=== PATIENT | male | born 1950 | race Hispanic/Latino ===

== ENCOUNTER 2017-02-25 02:01 | Emergency (ER) | payer SELFPAY ==
[2017-02-25 02:20] VITALS: BMI 31.1
[2017-02-25 02:22] VITALS: BP 179/83; PULSE 63; RESP 16; TEMP 97.5; O2SAT 98
--- NOTE | 2017-02-25 06:30 | ED PDOC ---
Lower Extremity Pain/Injury Time Seen by Provider: 02/25/17 02:16 Chief Complaint (Nursing): Lower Extremity Problem/Injury Chief Complaint (Provider): Foot Pain History Per: Patient History/Exam Limitations: no limitations Current Symptoms Are (Timing): Still Present Additional Complaint(s): Vishnu is a 66 y/o male with no past medical history who presents to the ED c/o chronic foot pain. Patient denies calf pain, shortness of breath, chest pain, or recent trauma. He is nondomicile. PMD: None Provided Past Medical History Reviewed: Historical Data, Nursing Documentation, Vital Signs Vital Signs: Last Vital Signs Temp 97.5 F L 02/25/17 02:20 Pulse 63 02/25/17 02:20 Resp 16 02/25/17 02:20 BP 179/83 H 02/25/17 02:20 Pulse Ox 98 02/25/17 02:20 - Medical History PMH: No Chronic Diseases - Surgical History Surgical History: No Surg Hx - Family History Family History: States: Unknown Family Hx - Home Medications Home Medications: Ambulatory Orders Medication Instructions Recorded Clotrimazole 1% Cream [Lotrimin 1% 1 applic TOP BID #1 tube 02/26/14 CREAM] Diphenhydramine Hydrochlorid 50 mg PO Q6 PRN #20 cap 05/28/14 [Benadryl] Permethrin [Elimite] 5 units TP ONCE #1 cre 05/28/14 Clindamycin [Cleocin] 300 mg PO BID #14 cap 07/03/14 Amoxicillin/Clavulanate Pota 1 tab PO BID #14 tab 08/02/14 [Augmentin 875 mg-125 mg] Naproxen [Naprosyn Tab] 250 mg PO Q12 #20 tab 12/22/15 - Allergies Allergies/Adverse Reactions: Allergies Allergy/AdvReac Type Severity Reaction Status Date / Time No Known Allergies Allergy Verified 02/25/17 02:19 Review of Systems ROS Statement: Except As Marked, All Systems Reviewed And Found Negative Cardiovascular: Negative for: Chest Pain Respiratory: Negative for: Shortness of Breath Musculoskeletal: Positive for: Foot Pain. Negative for: Leg Pain (calf) Physical Exam - Reviewed Nursing Documentation Reviewed: Yes Vital Signs Reviewed: Yes - Physical Exam Appears: Positive for: Non-toxic, No Acute Distress Head Exam: Positive for: ATRAUMATIC, NORMAL INSPECTION, NORMOCEPHALIC Skin: Positive for: Normal Color, Warm, Dry Eye Exam: Negative for: Nystagmus Cardiovascular/Chest: Positive for: Regular Rate, Rhythm. Negative for: Murmur Respiratory: Positive for: Normal Breath Sounds. Negative for: Respiratory Distress Gastrointestinal/Abdominal: Positive for: Normal Exam, Bowel Sounds, Soft. Negative for: Tenderness Back: Positive for: Normal Inspection Extremity: Positive for: Normal ROM, Capillary Refill (less than 2 sec. no drainge, discharge, hematoma or cellulitis noted in LE extremities), Swelling ( leg and foot chronic). Negative for: Calf Tenderness Neurologic/Psych: Positive for: Alert, hand chain maker II-XII, Oriented, Cerebellar Tests ( stable). Negative for: Motor/Sensory Deficits - ECG O2 Sat by Pulse Oximetry: 98 (RA) Pulse Ox Interpretation: Normal Medical Decision Making Medical Decision Making: Time: 3:26 Initial Impression: Foot pain Initial Plan: --Tylenol --Patient will follow up with podiatry for further treatment. Scribe Attestation: Documented by Adán Puente, acting as a scribe for Cristiane Coelho MD Provider Scribe Attestation: All medical record entries made by the Scribe were at my direction and personally dictated by me. I have reviewed the chart and agree that the record accurately reflects my personal performance of the history, physical exam, medical decision making, and the department course for this patient. I have also personally directed, reviewed, and agree with the discharge instructions and disposition. Disposition - Clinical Impression Clinical Impression: Chronic foot pain - Patient ED Disposition Is Patient to be Admitted: No Counseled Patient/Family Regarding: Studies Performed, Diagnosis, Need For Followup - Disposition Referrals: [facility] [Outside] Podiatry Clinic [Outside] Disposition: Routine/Home Disposition Time: 04:00 Condition: IMPROVED Additional Instructions: follow up with podiatry clinic in 1-2 days return to the ED with any worsening or concerning symptoms Instructions: Swollen Joint (ED) Forms: [employer] (Maori)
== END 2017-02-25 03:26 | disposition home or self-care (01) ==
LOC: H.ER 02:01
DX: G89.29 Other chronic pain (principal)

== ENCOUNTER 2017-03-13 02:14 | Emergency (ER) | payer SELFPAY ==
[2017-03-13 02:15] VITALS: BMI 31.1
[2017-03-13 02:39] VITALS: PULSE 76; RESP 16; TEMP 97.8; O2SAT 100
--- NOTE | 2017-03-13 03:32 | ED PDOC ---
Lower Extremity Pain/Injury Time Seen by Provider: 03/13/17 02:44 Chief Complaint (Nursing): Lower Extremity Problem/Injury Chief Complaint (Provider): leg pain History Per: Patient History/Exam Limitations: no limitations Onset/Duration Of Symptoms: Days (3) Current Symptoms Are (Timing): Still Present Additional History Per: Patient Additional Complaint(s): 66 y/o male presents with leg pain x 3 days. Patient notes problems with intermittent lower extremity pain/swelling x years, but notes pain to have started to worsen over the last few days. Patient is homeless, admits to excessive walking. Denies fever, nausea/vomiting, chest pain, shortness of breath, palpitations, recent travel. Past Medical History Reviewed: Historical Data, Nursing Documentation, Vital Signs Vital Signs: Last Vital Signs Temp 97.8 F 03/13/17 02:37 Pulse 76 03/13/17 02:37 Resp 16 03/13/17 02:37 BP 139/83 03/13/17 02:37 Pulse Ox 100 03/13/17 02:37 - Surgical History Surgical History: No Surg Hx - Family History Family History: States: Unknown Family Hx - Home Medications Home Medications: Ambulatory Orders Medication Instructions Recorded Clotrimazole 1% Cream [Lotrimin 1% 1 applic TOP BID #1 tube 02/26/14 CREAM] Diphenhydramine Hydrochlorid 50 mg PO Q6 PRN #20 cap 05/28/14 [Benadryl] Permethrin [Elimite] 5 units TP ONCE #1 cre 05/28/14 Clindamycin [Cleocin] 300 mg PO BID #14 cap 07/03/14 Amoxicillin/Clavulanate Pota 1 tab PO BID #14 tab 08/02/14 [Augmentin 875 mg-125 mg] Naproxen [Naprosyn Tab] 250 mg PO Q12 #20 tab 12/22/15 Furosemide [Lasix] 20 mg PO BID #20 tablet 03/13/17 - Allergies Allergies/Adverse Reactions: Allergies Allergy/AdvReac Type Severity Reaction Status Date / Time No Known Allergies Allergy Verified 02/25/17 02:19 Review of Systems ROS Statement: Except As Marked, All Systems Reviewed And Found Negative Musculoskeletal: Positive for: Leg Pain (left) Physical Exam - Reviewed Nursing Documentation Reviewed: Yes Vital Signs Reviewed: Yes - Physical Exam Appears: Positive for: Well, Non-toxic, No Acute Distress Cardiovascular/Chest: Positive for: Regular Rate, Rhythm Respiratory: Positive for: Normal Breath Sounds Extremity: Positive for: Normal ROM, Pedal Edema (bilateral with chronic skin thickening. Plantar bilateral feet macerated), Swelling (2+ bilateral lower extremity pitting edema. + open superficial ulceration left anterior/medial espinal ; no malodor, prurulent drainage noted. No warmth to touch.). Negative for: Calf Tenderness Neurologic/Psych: Positive for: Alert, Oriented - Laboratory Results Result Diagrams: 03/13/17 03:50 03/13/17 03:50 - ECG O2 Sat by Pulse Oximetry: 100 - Progress ED Course And Treament: labs Telfa applied over open ulceration. Fresh socks given. BNP elevated; patient denies chest pain, shortness of breath currently. Case discussed with ED attending Dr. Zuleta; agrees with plan to discharge with diuretic rx to f/up as outpatient. Patient was educated on findings, discharged with rx Lasix. Advised to follow up at [facility], wound care center, and podiatry clinic. Stressed importance of elevating legs at rest. Return to ED for worsening/concerning symptoms. Disposition - Clinical Impression Clinical Impression: CHF (congestive heart failure), Leg edema, Chronic ulcer of lower extremity Counseled Patient/Family Regarding: Studies Performed, Diagnosis, Need For Followup, Rx Given - Disposition Referrals: [facility] [Outside] Podiatry Clinic [Outside] [facility] [Outside] Disposition: Routine/Home Disposition Time: 05:04 Condition: STABLE Prescriptions: Furosemide [Lasix] 20 mg PO BID #20 tablet Instructions: Heart Failure (ED), Leg Edema (ED)
[2017-03-13 04:18] LABS: BASO # 0.1 K/uL (0.0-0.2); BASO % 1.1 % (0.0-2.0); EOS # 0.3 K/uL (0.0-0.7); EOS % 4.1 % (0.0-4.0); HEMATOCRIT 35.9 % (35.0-51.0); LYMPH # 1.7 K/uL (1.0-4.3); LYMPH % 27.6 % (20.0-40.0); MEAN CELL VOLUME 88.4 fl (80.0-94.0); MEAN CORPUSCULAR HEMOGLOBIN 30.4 pg (27.0-31.0); MEAN CORPUSCULAR HGB CONC 34.4 g/dL (33.0-37.0); MEAN PLATELET VOLUME 8.2 fl (7.2-11.7); MONO # 0.6 K/uL (0.0-0.8); MONO % 10.3 % (0.0-10.0); NEUT # 3.5 K/uL (1.8-7.0); NEUT % 56.9 % (50.0-75.0); RED CELL DISTRIBUTION WIDTH 14.1 % (11.5-14.5); WHITE BLOOD COUNT 6.1 K/uL (4.8-10.8)
[2017-03-13 04:29] LABS: ALB/GLOB RATIO 1.1 (1.0-2.1); BILIRUBIN,TOTAL 0.7 mg/dl (0.2-1.3); CARBON DIOXIDE 28 mmol/L (22-30); CHLORIDE 111 mmol/L (98-107); GFR AFRICAN-AMERICAN > 60; GLUCOSE,RANDOM 92 mg/dL (75-110); SODIUM 147 mmol/l (132-148); TOTAL PROTEIN 7.8 G/DL (6.3-8.2)
[2017-03-13 04:32] LABS: ALKALINE PHOSPHATASE 66 U/L (38-126); ALT/SGPT 25 U/L (21-72); AST/SGOT 19 U/L (17-59); BLOOD UREA NITROGEN 12 mg/dl (9-20); POTASSIUM 4.3 MMOL/L (3.6-5.0)
[2017-03-13 05:23] VITALS: BP 132/84
== END 2017-03-13 05:27 | disposition home or self-care (01) ==
LOC: H.ER 02:14
DX: I50.9 Heart failure, unspecified (principal); R60.0 Localized edema; L97.929 Non-pressure chronic ulcer of unspecified part of left lower leg with unspecified severity

== ENCOUNTER 2017-06-06 19:49 | Emergency (ER) | payer MEDICARE ==
[2017-06-06 19:49] VITALS: BMI 31.1
[2017-06-06 20:14] VITALS: BP 127/68; PULSE 71; RESP 18; TEMP 98.2; O2SAT 98
--- NOTE | 2017-06-06 21:07 | ED PDOC ---
HPI: Skin/Bite Injury Time Seen by Provider: 06/06/17 21:04 Chief Complaint (Nursing): Abnormal Skin Integrity Chief Complaint (Provider): Rash History Per: Patient History/Exam Limitations: no limitations Onset/Duration Of Symptoms: Days (x3) Additional Complaint(s): Vishnu Kwong is a 67 year old male that presents to the ED with a chief complaint of rash to arms and upper back for the past 3 days. Patient is currently non-domiciled. He denies fever or chills. PMD: none Past Medical History Reviewed: Historical Data, Nursing Documentation, Vital Signs Vital Signs: Last Vital Signs Temp 98.2 F 06/06/17 20:13 Pulse 71 06/06/17 20:13 Resp 18 06/06/17 20:13 BP 127/68 06/06/17 20:13 Pulse Ox 98 06/06/17 21:19 - Medical History PMH: CHF (as per pt history), Peripheral Edema - Family History Family History: States: Unknown Family Hx - Living Arrangements Living Arrangements: Other (nondomiciled) - Social History Current smoker - smoking cessation education provided: No Alcohol: None Drugs: Denies - Home Medications Home Medications: Ambulatory Orders Medication Instructions Recorded Clotrimazole 1% Cream [Lotrimin 1% 1 applic TOP BID #1 tube 02/26/14 CREAM] Diphenhydramine Hydrochlorid 50 mg PO Q6 PRN #20 cap 05/28/14 [Benadryl] Permethrin [Elimite] 5 units TP ONCE #1 cre 05/28/14 Clindamycin [Cleocin] 300 mg PO BID #14 cap 07/03/14 Amoxicillin/Clavulanate Pota 1 tab PO BID #14 tab 08/02/14 [Augmentin 875 mg-125 mg] Naproxen [Naprosyn Tab] 250 mg PO Q12 #20 tab 12/22/15 Furosemide [Lasix] 20 mg PO BID #20 tablet 03/13/17 - Allergies Allergies/Adverse Reactions: Allergies Allergy/AdvReac Type Severity Reaction Status Date / Time No Known Allergies Allergy Verified 02/25/17 02:19 Review of Systems ROS Statement: Except As Marked, All Systems Reviewed And Found Negative Skin: Positive for: Rash (rash and arms) Physical Exam - Reviewed Nursing Documentation Reviewed: Yes Vital Signs Reviewed: Yes - Physical Exam Appears: Positive for: Non-toxic, No Acute Distress Head Exam: Positive for: ATRAUMATIC, NORMOCEPHALIC Skin: Positive for: Normal Color, Warm, Rash (Urticarial and maculopapular rash noted to bilateral arms and back) Eye Exam: Positive for: Normal appearance, EOMI, PERRL Cardiovascular/Chest: Positive for: Regular Rate, Rhythm Respiratory: Positive for: Normal Breath Sounds Neurologic/Psych: Positive for: Alert, Oriented, Gait (steady). Negative for: Motor/Sensory Deficits - ECG O2 Sat by Pulse Oximetry: 98 (RA) Pulse Ox Interpretation: Normal Medical Decision Making Medical Decision Making: Impression: Contact dermatitis Plan: * Benadryl 25 mg PO * Prednisone 60 mg PO 21:18 Patient left without treatment complete, did not receive meds ordered Scribe Attestation: Documented by Janel Chang, acting as a scribe for Naomi Siegel PA-C. Provider Scribe Attestation: All medical record entries made by the Scribe were at my direction and personally dictated by me. I have reviewed the chart and agree that the record accurately reflects my personal performance of the history, physical exam, medical decision making, and the department course for this patient. I have also personally directed, reviewed, and agree with the discharge instructions and disposition. Disposition - Clinical Impression Clinical Impression: Contact dermatitis - Patient ED Disposition Is Patient to be Admitted: No - Disposition Disposition: Left W/O Treatment (Left before treatment complete) Disposition Time: 21:18 Condition: UNKNOWN Forms: [employer] (Welsh)
== END 2017-06-06 21:20 | disposition left against medical advice (07) ==
LOC: H.ER 19:49
DX: L25.9 Unspecified contact dermatitis, unspecified cause (principal); I50.9 Heart failure, unspecified

== ENCOUNTER 2017-07-04 00:41 | Observation (INO) | payer MEDICARE ==
[2017-07-04 00:41] VITALS: BMI 31.1
--- NOTE | 2017-07-04 02:18 | US ---
EXAM: US Duplex Right Lower Extremity Veins CLINICAL HISTORY: 67 years old, male; Pain; Leg, lower; Bilateral; Additional info: R/O dvt TECHNIQUE: Real-time ultrasound scan of the veins of the right lower extremity with color Doppler flow, spectral waveform analysis and compression. COMPARISON: No relevant prior studies available. FINDINGS: Deep veins: Incomplete compressibility of popliteal vein. Partial flow on color or spectral Doppler imaging. Superficial veins: No thrombosis. Soft tissues: No popliteal cyst. IMPRESSION: 1. Nonocclusive DVT within RIGHT lower extremity. EXAM: US Duplex Left Lower Extremity Veins CLINICAL HISTORY: 67 years old, male; Pain; Leg, lower; Bilateral; Additional info: R/O dvt TECHNIQUE: Real-time ultrasound scan of the veins of the left lower extremity with color Doppler flow, spectral waveform analysis and compression. COMPARISON: No relevant prior studies available. FINDINGS: Deep veins: Normal color and spectral Doppler flow. Normal compressibility. No deep vein thrombosis from common femoral to popliteal vein. Superficial veins: No thrombosis. Soft tissues: No popliteal cyst. IMPRESSION: 1. No evidence of DVT within LEFT lower extremity.
[2017-07-04] MEDS ORDERED: Enoxaparin 80 mg Syringe SC STA (02:43)
--- NOTE | 2017-07-04 02:43 | ED PDOC ---
Lower Extremity Pain/Injury Time Seen by Provider: 07/04/17 01:04 Chief Complaint (Nursing): Lower Extremity Problem/Injury Chief Complaint (Provider): Bilateral Leg Swelling and Pain History Per: Patient History/Exam Limitations: no limitations Onset/Duration Of Symptoms: Days (x2 weeks) Current Symptoms Are (Timing): Still Present Additional Complaint(s): 67 y/o male with a past medical history of chronic LE edema and CHF, who presents to the ED complaining of b/l leg pain and swelling x2 weeks. Patient states his pain is worse than he is usually accustomed to. Denies fever, chest pain, or shortness of breath. PMD: None provided Past Medical History Reviewed: Historical Data, Nursing Documentation, Vital Signs Vital Signs: Last Vital Signs Temp 98.2 F 07/04/17 00:56 Pulse 92 H 07/04/17 00:56 Resp 18 07/04/17 00:56 BP 134/71 07/04/17 00:56 Pulse Ox 99 07/04/17 00:56 - Medical History PMH: CHF (as per pt history), Peripheral Edema - Surgical History Surgical History: No Surg Hx - Family History Family History: States: Unknown Family Hx - Living Arrangements Living Arrangements: Other (Homeless) - Social History Current smoker - smoking cessation education provided: Yes Alcohol: None Drugs: Denies - Home Medications Home Medications: Ambulatory Orders Medication Instructions Recorded No Known Home Med 07/04/17 - Allergies Allergies/Adverse Reactions: Allergies Allergy/AdvReac Type Severity Reaction Status Date / Time No Known Allergies Allergy Verified 02/25/17 02:19 Review of Systems ROS Statement: Except As Marked, All Systems Reviewed And Found Negative Constitutional: Negative for: Fever Cardiovascular: Negative for: Chest Pain Respiratory: Negative for: Shortness of Breath Musculoskeletal: Positive for: Leg Pain (and swelling) Physical Exam - Reviewed Nursing Documentation Reviewed: Yes Vital Signs Reviewed: Yes - Physical Exam Appears: Positive for: Non-toxic, No Acute Distress Head Exam: Positive for: ATRAUMATIC, NORMAL INSPECTION, NORMOCEPHALIC Skin: Positive for: Normal Color, Warm, Dry. Negative for: Rash Eye Exam: Positive for: EOMI, Normal appearance, PERRL Neck: Positive for: Normal, Painless ROM, Supple Cardiovascular/Chest: Positive for: Regular Rate, Rhythm. Negative for: Murmur Respiratory: Positive for: Normal Breath Sounds. Negative for: Respiratory Distress Gastrointestinal/Abdominal: Positive for: Normal Exam, Bowel Sounds, Soft. Negative for: Tenderness Back: Positive for: Normal Inspection. Negative for: L CVA Tenderness, R CVA Tenderness, Vertebral Tenderness Extremity: Positive for: Calf Tenderness (and warmth), Other (b/l erythema and edema to both lower extremities, right more edematous than left, 3+ edema to LLE , 2+ edema to RLE) Neurologic/Psych: Positive for: Alert, Oriented. Negative for: Motor/Sensory Deficits - Laboratory Results Result Diagrams: 07/05/17 06:00 07/05/17 06:00 - ECG O2 Sat by Pulse Oximetry: 99 (RA) Pulse Ox Interpretation: Normal Medical Decision Making Medical Decision Making: Time: 01:28 Initial Impression: 67 y/o male with lower extremity pain in setting of known chronic venostatsis Initial Plan: --Alcohol serum --CMP --Lactic acid, plasma --PTT/PT --CBC w/ differential --Toradol 4mg IV --Blood culture --Heplock insertion --US Duplex LE --Reevaluation Time: 02:18 EXAM: US Duplex Right Lower Extremity Veins CLINICAL HISTORY: 67 years old, male; Pain; Leg, lower; Bilateral; Additional info: R/O dvt TECHNIQUE: Real-time ultrasound scan of the veins of the right lower extremity with color Doppler flow, spectral waveform analysis and compression. COMPARISON: No relevant prior studies available. FINDINGS: Deep veins: Incomplete compressibility of popliteal vein. Partial flow on color or spectral Doppler imaging. Superficial veins: No thrombosis. Soft tissues: No popliteal cyst. IMPRESSION: 1. Nonocclusive DVT within RIGHT lower extremity. EXAM: US Duplex Left Lower Extremity Veins CLINICAL HISTORY: 67 years old, male; Pain; Leg, lower; Bilateral; Additional info: R/O dvt TECHNIQUE: Real-time ultrasound scan of the veins of the left lower extremity with color Doppler flow, spectral waveform analysis and compression. COMPARISON: No relevant prior studies available. FINDINGS: Deep veins: Normal color and spectral Doppler flow. Normal compressibility. No deep vein thrombosis from common femoral to popliteal vein. Superficial veins: No thrombosis. Soft tissues: No popliteal cyst. IMPRESSION: 1. No evidence of DVT within LEFT lower extremity. Time: : --Lovenox 80mg SC --Patient will be admitted for new onset DVT. Case discussed with Dr. Foss, [facility] resident. Scribe Attestation: Documented by Yfn Wyatt, acting as a scribe for John Zuleta MD. Provider Scribe Attestation: All medical record entries made by the Scribe were at my direction and personally dictated by me. I have reviewed the chart and agree that the record accurately reflects my personal performance of the history, physical exam, medical decision making, and the department course for this patient. I have also personally directed, reviewed, and agree with the discharge instructions and disposition. Disposition - Clinical Impression Clinical Impression: Deep vein thrombosis (DVT) - Patient ED Disposition Is Patient to be Admitted: Yes - Disposition Disposition Time: : Condition: STABLE - Pt Status Changed To: Hospital Disposition Of: Inpatient - Admit Certification Admit to Inpatient:: After my assessment, the patient will require hospitalization for at least two midnights. This is because of the severity of symptoms shown, intensity of services needed, and/or the medical risk in this patient being treated as an outpatient.
[2017-07-04 03:00] LABS: BASO % 0.6 % (0.0-2.0); EOS # 0.4 K/uL (0.0-0.7); EOS % 5.4 % (0.0-4.0); HEMOGLOBIN 10.5 g/dL (12.0-18.0); LYMPH % 13.3 % (20.0-40.0); MEAN CELL VOLUME 84.6 fl (80.0-94.0); MEAN CORPUSCULAR HEMOGLOBIN 27.4 pg (27.0-31.0); MEAN CORPUSCULAR HGB CONC 32.3 g/dL (33.0-37.0); MEAN PLATELET VOLUME 7.9 fl (7.2-11.7); MONO # 0.8 K/uL (0.0-0.8); MONO % 11.3 % (0.0-10.0); NEUT # 5.1 K/uL (1.8-7.0); NEUT % 69.4 % (50.0-75.0); NRBC % 0.1 % (0.0-0.0); RBC 3.85 Mil/uL (4.40-5.90); RED CELL DISTRIBUTION WIDTH 16.2 % (11.5-14.5); WHITE BLOOD COUNT 7.3 K/uL (4.8-10.8)
[2017-07-04 03:01] LABS: ALB/GLOB RATIO 0.8 (1.0-2.1); ALBUMIN 3.5 g/dL (3.5-5.0); ALT/SGPT 31 U/L (21-72); AST/SGOT 20 U/L (17-59); BLOOD UREA NITROGEN 24 mg/dl (9-20); GFR AFRICAN-AMERICAN > 60; GFR NON-AFRICAN AMERICAN > 60
[2017-07-04 03:08] LABS: INR 1.1 (0.9-1.2); PROTHROMBIN TIME 11.7 Seconds (9.8-13.1)
[2017-07-04 03:09] LABS: PARTIAL THROMBOPLASTIN TIME 29.5 Seconds (25.6-37.1)
--- NOTE | 2017-07-04 03:30 | CP.PCM.HP ---
History of Present Illness - History of Present Illness History of Present Illness: 67 yo ,m, Homeless, PMhx/o b/l leg stasis edema lower extremities, chronic leg ulcers, CHF presents to ED c/o righ calf pain for the last 2 weeks, worse during the last 2 days, associated with swelling. Patient denies fever, cough, SOB, chest pain, palpitation, n,v,abd pain,diarrhea, hx/o DVT, recent travel, inmovilization. reports chornic pain b/l leg, but this time is different pain than he usually is accustomed to. PMD: [facility] last seen Dr Hess 03/22/2017 Allergies:NKDA Meds: none Psurghx: none Pshx: Denies ETOH,rect drugs cig but by ECW: Reports smoking hx of 80 pack years , past Etoh abuse (2-3 (6pack beers) per day)-last smoked and drank Etoh at the end of the when he lost his job and home ER Course VS: Normal LAbs: CBC : 7.3 >10.5<228 pending rest of the labs Imaging: Nonocclusive DVT within RIGHT lower extremity(popliteal vein). Meds: Lovenox 80 mg sc, Toradol 15 mg IV Status: Full code Present on Admission - Present on Admission Any Indicators Present on Admission: No History of DVT/PE: No History of Uncontrolled Diabetes: No Decubitus Ulcer Present: No Review of Systems - Review of Systems All systems: reviewed and no additional remarkable complaints except - Cardiovascular Cardiovascular: As Per HPI - Respiratory Respiratory: As Per HPI - Gastrointestinal Gastrointestinal: As Per HPI - Musculoskeletal Musculoskeletal: Other (b/l leg pain, worse right leg) - Integumentary Integumentary: Dry Skin, Skin Ulcer (left ant calf), Swelling (b/l legs) Past Patient History - Past Social History Alcohol: None Drugs: Denies - CARDIAC Hx Congestive Heart Failure: Yes (as per pt history) Hx Peripheral Edema: Yes - INTEGUMENTARY Other/Comment: chronic leg ulcers as per history - PSYCHIATRIC Hx Substance Use: No - SURGICAL HISTORY Hx Surgeries: Yes Hx Eye Surgery: Yes (Left eye Strabismus) - ANESTHESIA Hx Anesthesia: Yes Hx Anesthesia Reactions: No Meds Allergies/Adverse Reactions: Allergies Allergy/AdvReac Type Severity Reaction Status Date / Time No Known Allergies Allergy Verified 02/25/17 02:19 Physical Exam - Constitutional Appears: Non-toxic, No Acute Distress - Head Exam Head Exam: ATRAUMATIC, NORMOCEPHALIC - Eye Exam Eye Exam: Normal appearance - ENT Exam ENT Exam: Mucous Membranes Moist - Neck Exam Neck exam: Positive for: Normal Inspection - Respiratory Exam Respiratory Exam: Clear to Auscultation Bilateral. absent: Rales, Rhonchi, Wheezes - Cardiovascular Exam Cardiovascular Exam: REGULAR RHYTHM, +S1, +S2, Systolic Murmur (2/6 left sternal border, arotic area, pulmonar area) - GI/Abdominal Exam GI & Abdominal Exam: Normal Bowel Sounds, Soft. absent: Guarding, Rebound, Tenderness - Extremities Exam Extremities exam: Positive for: calf tenderness (right leg, Lucas sign right leg ), full ROM, pedal edema (2+ b/l legs), tenderness (right leg, b/l leg erythema with stasis dermatitis,dry skin, yellow scab, superficial ulcer left ant calf) - Back Exam Back exam: NORMAL INSPECTION - Neurological Exam Neurological exam: Alert, Oriented x3 - Psychiatric Exam Psychiatric exam: Normal Affect - Skin Skin Exam: Dry Results - Vital Signs Recent Vital Signs: Last Vital Signs Temp 98.2 F 07/04/17 00:56 Pulse 92 H 07/04/17 00:56 Resp 18 07/04/17 00:56 BP 134/71 07/04/17 00:56 Pulse Ox 99 07/04/17 03:20 - Labs Result Diagrams: 07/04/17 02:35 07/04/17 02:35 Labs: Laboratory Results - last 24 hr 07/04/17 07/04/17 07/04/17 02:35 02:35 02:35 WBC 7.3 RBC 3.85 L Hgb 10.5 L Hct 32.6 L MCV 84.6 D MCH 27.4 MCHC 32.3 L RDW 16.2 H Plt Count 228 MPV 7.9 Neut % (Auto) 69.4 Lymph % (Auto) 13.3 L [place] % (Auto) 11.3 H Eos % (Auto) 5.4 H Baso % (Auto) 0.6 Neut # (Auto) 5.1 Lymph # (Auto) 1.0 [place] # (Auto) 0.8 Eos # (Auto) 0.4 Baso # (Auto) 0.0 PT INR APTT Sodium 143 Potassium 3.9 Chloride 105 Carbon Dioxide 25 Anion Gap 17 BUN 24 H Creatinine 0.9 Est GFR ( Amer) > 60 Est GFR (Non-Af Amer) > 60 Random Glucose 115 H Lactic Acid 0.8 Calcium 9.0 Total Bilirubin 0.3 AST 20 ALT 31 Alkaline Phosphatase 68 Total Protein 7.9 Albumin 3.5 Globulin 4.3 H Albumin/Globulin Ratio 0.8 L Alcohol, Quantitative < 10 07/04/17 02:35 WBC RBC Hgb Hct MCV MCH MCHC RDW Plt Count MPV Neut % (Auto) Lymph % (Auto) [place] % (Auto) Eos % (Auto) Baso % (Auto) Neut # (Auto) Lymph # (Auto) [place] # (Auto) Eos # (Auto) Baso # (Auto) PT 11.7 INR 1.1 APTT 29.5 Sodium Potassium Chloride Carbon Dioxide Anion Gap BUN Creatinine Est GFR ( Amer) Est GFR (Non-Af Amer) Random Glucose Lactic Acid Calcium Total Bilirubin AST ALT Alkaline Phosphatase Total Protein Albumin Globulin Albumin/Globulin Ratio Alcohol, Quantitative Assessment & Plan - Assessment and Plan (Free Text) Plan: Assessment/Plan 67 yo ,m, Homeless, PMhx/o b/l leg stasis edema lower extremities, chronic leg ulcers, CHF admitted for right leg DVT 1) DVT right leg -Us dopplex: Nonocclusive DVT within RIGHT lower extremity( right popliteal vein ). -Lovenox 1mg/kg BID 80 mg SC BID 2) Hx/o CHF -by chart. patient denies CHF -systolic murmur -EK : possible lef atrial enlargment, left ant fascicular block, possible old anteroseptal infarct T wave abnormality. consider lat ischemia. -EKG on admission: NSR. left ant fascicular block, ant septal infart age indeterminated. -Pending BMP. consider Echo 3) Leg stasis dermatitis -chronic -will need podiatry evaluation 4) DVT Prophylaxis -Lovenox therapeutic for DVT
--- NOTE | 2017-07-04 08:34 | CP.PCM.PN ---
Subjective - Date & Time of Evaluation Date of Evaluation: 07/04/17 Time of Evaluation: 09:55 - Subjective Subjective: Pt seen and evaluated at bedside this am. Admitted overnight for DVT in RLE. No further acute events overnight, no other complaints. Denies chest pain, trouble breathing, abdominal pain/discomfort. Objective - Vital Signs/Intake and Output Vital Signs (last 24 hours): Temp Pulse Resp BP Pulse Ox 97.6 F 79 19 148/68 98 07/04/17 07:52 07/04/17 07:52 07/04/17 07:52 07/04/17 07:52 07/04/17 07:52 - Medications Medications: Current Medications Acetaminophen (Tylenol 325mg Tab) 650 mg PO Q6 PRN PRN Reason: Pain, Mild (1-3) Acetaminophen (Tylenol 325mg Tab) 650 mg PO Q6 PRN PRN Reason: Fever >100.4 F Enoxaparin Sodium (Lovenox) 80 mg SC Q12H KALYANI PRN Reason: Protocol Ketorolac Tromethamine (Toradol) 15 mg IVP Q6 PRN PRN Reason: Pain, moderate (4-7) Morphine Sulfate (Morphine) 2 mg IVP Q4 PRN PRN Reason: Pain, severe (8-10) - Labs Labs: 07/04/17 02:35 07/04/17 02:35 PT 11.7 Seconds (9.8-13.1) 07/04/17 02:35 INR 1.1 (0.9-1.2) 07/04/17 02:35 APTT 29.5 Seconds (25.6-37.1) 07/04/17 02:35 - Constitutional Appears: Non-toxic, No Acute Distress, Unkempt - Eye Exam Eye Exam: Normal appearance - ENT Exam ENT Exam: Mucous Membranes Moist - Respiratory Exam Respiratory Exam: Clear to Ausculation Bilateral, NORMAL BREATHING PATTERN. absent: Rales, Rhonchi, Wheezes - Cardiovascular Exam Cardiovascular Exam: REGULAR RHYTHM, +S1, +S2 - GI/Abdominal Exam GI & Abdominal Exam: Soft, Normal Bowel Sounds. absent: Tenderness - Extremities Exam Extremities Exam: Calf Tenderness (right calf), Pedal Edema (bilaterally, 2+) Additional comments: RLE warm, edematous > LLE evidence of venous stasis, dried yellow crusts on lower calves circumferentially and bilaterally - Neurological Exam Neurological Exam: Alert, Awake - Skin Skin Exam: Dry Assessment and Plan - Assessment and Plan (Free Text) Assessment: 67 yo homeless male, with bilateral lower extremity edema and venous stasis admitted for DVT in [facility]. Plan: # DVT of right lower extremity - Venous duplex u/s : Nonocclusive DVT within RIGHT lower extremity (right popliteal vein) - Lovenox 1mg/kg Q12; 80 mg SC Q12 # Chronic venous stasis - Podiatry consult # DVT prophylaxis - Pt admitted with DVT; receiving therapeutic dose of lovenox
--- NOTE | 2017-07-04 09:07 | CARD ---
APPROVED REPORT EKG Measurement Heart [id number] <Conclusion> Normal sinus rhythm Left anterior fascicular block Anteroseptal infarct, age undetermined Abnormal ECG
--- NOTE | 2017-07-04 09:56 | RAD ---
HISTORY: admit COMPARISON: 08/02/2014 FINDINGS: LUNGS: No focal alveolar infiltrate. PLEURA: No significant pleural effusion identified, no pneumothorax apparent. CARDIOVASCULAR: Cardiomegaly. Mild atherosclerotic change of the aorta, unchanged. No CHF. OSSEOUS STRUCTURES: No significant abnormalities. VISUALIZED UPPER ABDOMEN: Normal. OTHER FINDINGS: None. IMPRESSION: Cardiomegaly. No focal infiltrate.
[2017-07-04] MEDS: Enoxaparin 80 mg Syringe SC SCH (16:10)
--- NOTE | 2017-07-04 16:44 | CP.PCM.CON ---
History of Present Illness - History of Present Illness History of Present Illness: 67 year old male seen on floors for dermatological changes and swelling to b/l LE. Patient can not say how long the dermatological changes have been present but he says they have been getting worse over the last several months. He states that there is minimal, controlled pain associated with the changes. He denies any sort of treatment up to this point. States that he is homeless and does not recall the last time he saw a doctor. Patient is being treated for a DVT of his right leg currently. Denies any further pedal complaints at this time. Denies any recent N/V/F/C/CP/SOB/D/posterior calf pain when squeezed. Review of Systems - Review of Systems Review of Systems: ROS as per HPI Past Patient History - Past Medical History & Family History Past Medical History?: Yes - Past Social History Smoking Status: Former Smoker - CARDIAC Hx Cardiac Disorders: Yes - PULMONARY Hx Respiratory Disorders: No - NEUROLOGICAL Hx Neurological Disorder: No - HEENT Hx HEENT Problems: Yes - RENAL Hx Chronic Kidney Disease: No - ENDOCRINE/METABOLIC Hx Endocrine Disorders: No - HEMATOLOGICAL/ONCOLOGICAL Hx Blood Disorders: No - INTEGUMENTARY Hx Dermatological Problems: No - MUSCULOSKELETAL/RHEUMATOLOGICAL Hx Musculoskeletal Disorders: No Hx Falls: No - GASTROINTESTINAL Hx Gastrointestinal Disorders: No - GENITOURINARY/GYNECOLOGICAL Hx Genitourinary Disorders: No - PSYCHIATRIC Hx Psychophysiologic Disorder: No Hx Substance Use: No - SURGICAL HISTORY Hx Surgeries: Yes Hx Eye Surgery: Yes (Left eye Strabismus) - ANESTHESIA Hx Anesthesia: Yes Hx Anesthesia Reactions: No Hx Malignant Hyperthermia: No Has any member of the family had a problem w/ anesthesia?: No Meds Allergies/Adverse Reactions: Allergies Allergy/AdvReac Type Severity Reaction Status Date / Time No Known Allergies Allergy Verified 02/25/17 02:19 - Medications Medications: Current Medications Acetaminophen (Tylenol 325mg Tab) 650 mg PO Q6 PRN PRN Reason: Pain, Mild (1-3) Acetaminophen (Tylenol 325mg Tab) 650 mg PO Q6 PRN PRN Reason: Fever >100.4 F Enoxaparin Sodium (Lovenox) 80 mg SC Q12H KALYANI PRN Reason: Protocol Last Admin: 07/04/17 16:10 Dose: 80 mg Ketorolac Tromethamine (Toradol) 15 mg IVP Q6 PRN PRN Reason: Pain, moderate (4-7) Morphine Sulfate (Morphine) 2 mg IVP Q4 PRN PRN Reason: Pain, severe (8-10) Physical Exam - Constitutional Appears: Well, Non-toxic, No Acute Distress - Extremities Exam Additional comments: Vasc: DP pulses palpable 2/4 b/l. PT pulses non-palpable secondary to 1+ pitting edema b/l. CFT < 3 seconds to all digits. Skin temperature increased to b/l legs Neuro: Epicritic and protective sensation grossly intact b/l Derm: Diffuse white and green plaques noted to b/l legs most likely secondary to venous stasis dermatitis. Fissuring noted diffusely to both legs. Erythematous changes noted to skin as well. No purulent or serous drainage noted at this time. No malodor, no other clinical signs of infection MSK: POP to b/l legs. No gross deformities noted b/l - Neurological Exam Neurological exam: Alert, Oriented x3 - Psychiatric Exam Psychiatric exam: Normal Affect, Normal Mood Results - Vital Signs Recent Vital Signs: Last Vital Signs Temp 98.3 F 07/04/17 15:52 Pulse 74 07/04/17 15:52 Resp 20 07/04/17 15:52 BP 121/63 07/04/17 15:52 Pulse Ox 97 07/04/17 15:52 - Labs Result Diagrams: 07/04/17 02:35 07/04/17 02:35 Labs: Laboratory Results - last 24 hr 07/04/17 07/04/17 07/04/17 02:35 02:35 02:35 WBC 7.3 RBC 3.85 L Hgb 10.5 L Hct 32.6 L MCV 84.6 D MCH 27.4 MCHC 32.3 L RDW 16.2 H Plt Count 228 MPV 7.9 Neut % (Auto) 69.4 Lymph % (Auto) 13.3 L Kent % (Auto) 11.3 H Eos % (Auto) 5.4 H Baso % (Auto) 0.6 Neut # (Auto) 5.1 Lymph # (Auto) 1.0 Kent # (Auto) 0.8 Eos # (Auto) 0.4 Baso # (Auto) 0.0 PT INR APTT Sodium 143 Potassium 3.9 Chloride 105 Carbon Dioxide 25 Anion Gap 17 BUN 24 H Creatinine 0.9 Est GFR ( Amer) > 60 Est GFR (Non-Af Amer) > 60 Random Glucose 115 H Lactic Acid 0.8 Calcium 9.0 Total Bilirubin 0.3 AST 20 ALT 31 Alkaline Phosphatase 68 Total Protein 7.9 Albumin 3.5 Globulin 4.3 H Albumin/Globulin Ratio 0.8 L Alcohol, Quantitative < 10 07/04/17 02:35 WBC RBC Hgb Hct MCV MCH MCHC RDW Plt Count MPV Neut % (Auto) Lymph % (Auto) Kent % (Auto) Eos % (Auto) Baso % (Auto) Neut # (Auto) Lymph # (Auto) Kent # (Auto) Eos # (Auto) Baso # (Auto) PT 11.7 INR 1.1 APTT 29.5 Sodium Potassium Chloride Carbon Dioxide Anion Gap BUN Creatinine Est GFR ( Amer) Est GFR (Non-Af Amer) Random Glucose Lactic Acid Calcium Total Bilirubin AST ALT Alkaline Phosphatase Total Protein Albumin Globulin Albumin/Globulin Ratio Alcohol, Quantitative Assessment & Plan - Assessment and Plan (Free Text) Assessment: 67 year old male seen for chronic venous stasis dermatitis with plaques and fissuring Plan: Patient seen and evaluated at bedside Afebrile, absent leukocytosis Plan discussed with attending Dr. Aguiar B/l compressive HATTIE wraps applied to legs Clotrimazole and Cortizone ordered to be applied with daily dressing changes No plan for surgical intervention at this time Podiatry will continue to follow while patient in house - Date & Time Date: 07/04/17 Time: 16:51
[2017-07-05] MEDS: Enoxaparin 80 mg Syringe SC SCH ×2 (03:56→16:58)
[2017-07-05 06:48] LABS: BASO % 0.5 % (0.0-2.0); EOS # 0.5 K/uL (0.0-0.7); EOS % 8.5 % (0.0-4.0); HEMOGLOBIN 11.1 g/dL (12.0-18.0); LYMPH # 1.5 K/uL (1.0-4.3); LYMPH % 25.5 % (20.0-40.0); MEAN CELL VOLUME 84.5 fl (80.0-94.0); MEAN CORPUSCULAR HEMOGLOBIN 27.8 pg (27.0-31.0); MEAN CORPUSCULAR HGB CONC 32.9 g/dL (33.0-37.0); MEAN PLATELET VOLUME 8.1 fl (7.2-11.7); MONO # 0.5 K/uL (0.0-0.8); MONO % 8.9 % (0.0-10.0); NEUT # 3.3 K/uL (1.8-7.0); NEUT % 56.6 % (50.0-75.0); RED CELL DISTRIBUTION WIDTH 15.7 % (11.5-14.5); WHITE BLOOD COUNT 5.9 K/uL (4.8-10.8)
[2017-07-05 07:04] LABS: BLOOD UREA NITROGEN 18 mg/dl (9-20); CALCIUM 8.7 mg/dL (8.4-10.2); GFR AFRICAN-AMERICAN > 60; GFR NON-AFRICAN AMERICAN > 60
--- NOTE | 2017-07-05 07:33 | CARD ---
APPROVED REPORT EKG Measurement Heart [id number] <Conclusion> Normal sinus rhythm Left anterior fascicular block Septal infarct, age undetermined T wave abnormality, consider inferior ischemia T wave abnormality, consider anterolateral ischemia Abnormal ECG
--- NOTE | 2017-07-05 07:55 | RAD ---
HISTORY: chf? congestion? COMPARISON: Portable chest 07/04/2017 5:20 a.m.. TECHNIQUE: Chest PA and lateral FINDINGS: LUNGS: Bilateral perihilar and medial basilar patchy density appears to be developing and possibly at the medial left base base as well opacities could be a foot as a function of developing infiltrates or CHF. Further clinical correlation is advised. PLEURA: No significant pleural effusion identified. No pneumothorax apparent. CARDIOVASCULAR: Stable cardiac silhouette, borderline enlarged. OSSEOUS STRUCTURES: No significant abnormalities. VISUALIZED UPPER ABDOMEN: Normal. OTHER FINDINGS: None. IMPRESSION: Potentially early CHF or limited bilateral perihilar/ medial basilar developing infiltrates. Continued clinical and radiographic monitoring advised.
--- NOTE | 2017-07-05 15:48 | CP.PCM.DIS ---
Provider - Provider Date of Admission: 07/04/17 04:21 Attending physician: Latoya Russell MD Primary care physician: [facility] Consults: Podiatry Time Spent in preparation of Discharge (in minutes): 30 Diagnosis - Discharge Diagnosis (1) Deep vein thrombosis (DVT) Status: Acute Comment: Found to have popliteal right lower extremity DVT. Treated with therapeutic lovenox. Discharged on Eliquis. Hospital Course - Lab Results Lab Results: Micro Results 07/04/17 03:00 Blood-Venous Blood Culture - Preliminary NO GROWTH AFTER 24 HOURS 07/04/17 02:35 Blood-Venous Blood Culture - Preliminary NO GROWTH AFTER 24 HOURS Most Recent Lab Values WBC 5.9 K/uL (4.8-10.8) 07/05/17 06:00 RBC 4.00 Mil/uL (4.40-5.90) L 07/05/17 06:00 Hgb 11.1 g/dL (12.0-18.0) L 07/05/17 06:00 Hct 33.8 % (35.0-51.0) L 07/05/17 06:00 MCV 84.5 fl (80.0-94.0) 07/05/17 06:00 MCH 27.8 pg (27.0-31.0) 07/05/17 06:00 MCHC 32.9 g/dL (33.0-37.0) L 07/05/17 06:00 RDW 15.7 % (11.5-14.5) H 07/05/17 06:00 Plt Count 224 K/uL (130-400) 07/05/17 06:00 MPV 8.1 fl (7.2-11.7) 07/05/17 06:00 Neut % (Auto) 56.6 % (50.0-75.0) 07/05/17 06:00 Lymph % (Auto) 25.5 % (20.0-40.0) 07/05/17 06:00 Angelina % (Auto) 8.9 % (0.0-10.0) 07/05/17 06:00 Eos % (Auto) 8.5 % (0.0-4.0) H 07/05/17 06:00 Baso % (Auto) 0.5 % (0.0-2.0) 07/05/17 06:00 Neut # (Auto) 3.3 K/uL (1.8-7.0) 07/05/17 06:00 Lymph # (Auto) 1.5 K/uL (1.0-4.3) 07/05/17 06:00 Angelina # (Auto) 0.5 K/uL (0.0-0.8) 07/05/17 06:00 Eos # (Auto) 0.5 K/uL (0.0-0.7) 07/05/17 06:00 Baso # (Auto) 0.0 K/uL (0.0-0.2) 07/05/17 06:00 PT 11.7 Seconds (9.8-13.1) 07/04/17 02:35 INR 1.1 (0.9-1.2) 07/04/17 02:35 APTT 29.5 Seconds (25.6-37.1) 07/04/17 02:35 Sodium 142 mmol/l (132-148) 07/05/17 06:00 Potassium 3.8 MMOL/L (3.6-5.0) 07/05/17 06:00 Chloride 105 mmol/L (98-107) 07/05/17 06:00 Carbon Dioxide 25 mmol/L (22-30) 07/05/17 06:00 Anion Gap 16 (10-20) 07/05/17 06:00 BUN 18 mg/dl (9-20) 07/05/17 06:00 Creatinine 0.9 mg/dl (0.8-1.5) 07/05/17 06:00 Est GFR ( Amer) > 60 07/05/17 06:00 Est GFR (Non-Af Amer) > 60 07/05/17 06:00 Random Glucose 88 mg/dL (75-110) 07/05/17 06:00 Lactic Acid 0.8 MMOL/L (0.7-2.1) 07/04/17 02:35 Calcium 8.7 mg/dL (8.4-10.2) 07/05/17 06:00 Total Bilirubin 0.3 mg/dl (0.2-1.3) 07/04/17 02:35 AST 20 U/L (17-59) 07/04/17 02:35 ALT 31 U/L (21-72) 07/04/17 02:35 Alkaline Phosphatase 68 U/L (38-126) 07/04/17 02:35 Total Protein 7.9 G/DL (6.3-8.2) 07/04/17 02:35 Albumin 3.5 g/dL (3.5-5.0) 07/04/17 02:35 Globulin 4.3 gm/dL (2.2-3.9) H 07/04/17 02:35 Albumin/Globulin Ratio 0.8 (1.0-2.1) L 07/04/17 02:35 Alcohol, Quantitative < 10 mg/dl (0-10) 07/04/17 02:35 - Hospital Course Hospital Course: Vishnu Kwong is a 67 yo M with PMH chronic venous stasis was admitted due to DVT in right lower extremity. Pt was treated with therapeutic lovenox every 12 hours. Last dose prior to discharge. Seen and evaluated today; states he has been up and walking around, denies chest pain and SOB. Ate breakfast and lunch. Discussed with patient options for anticoagulation upon discharge- explained that anticoagulation is very important to treat the clot in his leg and that left untreated, he faces complications including but not limited to loss of limb , clot in the lung, and . Discussed with patient the need for anticoagulation for at least three months, and options of coumadin vs NOACs. Worked with case management to get patient first starter pack of Eliquis for free; case management spoke with [facility] who estimated that cost of subsequent prescription is about $10. Explained that with coumadin, pt may have cheaper prescription cost, but more often labwork/followup vs NOACs which may cost more, but require less blood draws. Presented this information to pt, who is agreeable to starting Eliquis and agreeable to purchase next two months of prescription. Pt also agreeable to follow up in the clinic this week and in 2-3 weeks for follow up and medication review/refill. Discharge Exam - Head Exam Head Exam: ATRAUMATIC, NORMOCEPHALIC - Eye Exam Eye Exam: Normal appearance - Neck Exam Neck exam: Full Rom - Respiratory Exam Respiratory Exam: NORMAL BREATHING PATTERN, UNREMARKABLE - Cardiovascular Exam Cardiovascular Exam: REGULAR RHYTHM, +S1, +S2 - GI/Abdominal Exam GI & Abdominal Exam: Normal Bowel Sounds, Soft, Unremarkable - Extremities Exam Additional comments: RLE more swollen than LLE - Neurological Exam Neurological exam: Alert - Skin Skin Exam: Dry, Warm Discharge Plan - Follow Up Plan Condition: STABLE Disposition: HOME/ ROUTINE Instructions: Deep Vein Thrombosis (Blood Clots in the Legs) (DC) Additional Instructions: Please take the Eliquis starter pack as directed - you are provided with one month's worth of medication on discharge. You need to take 10 mg (2 of the 5mg tablets) every morning and 10 mg every evening for 7 days. On the 8th day- take ONE 5mg tablet in the morning, and ONE 5mg tablet at night. Continue taking 5mg in the morning and 5mg at night after that. It is VERY important that you take this medication and come to the follow up appointment on FRIDAY JULY 07, 2017 AT 3:30PM at the [facility]. Return to ED if symptoms return or worsen. Referrals: [facility] [place] [Outside] - 07/07/17 3:30 pm (Please arrive at 3 pm.) Clinical Quality Measures - CQM - VTE Did patient receive overlap therapy during hosptialization?: No If no, please select a reason why?: Use of Anticoagulants Is patient being discharged on overlap therapy?: No If no, please select a reason why:: Use of Anticoagulants
[2017-07-05 16:06] VITALS: BP 117/67; PULSE 73; RESP 20; TEMP 97.2; O2SAT 99
== END 2017-07-05 18:11 | disposition home or self-care (01) ==
LOC: H.ER 00:41 → H.ERHOLD 04:21 → INTOOBSV 04:21 → H.MEDSURG1 05:59
PROVIDERS: ADMIT Family Medicine Geriatric Medicine; ATTEND Family Medicine Geriatric Medicine
DX: I82.431 Acute embolism and thrombosis of right popliteal vein (principal); I82.401 Acute embolism and thrombosis of unspecified deep veins of right lower extremity; F17.200 Nicotine dependence, unspecified, uncomplicated; I50.9 Heart failure, unspecified; I87.2 Venous insufficiency (chronic) (peripheral); L97.909 Non-pressure chronic ulcer of unspecified part of unspecified lower leg with unspecified severity; Z59.0 Homelessness; F10.10 Alcohol abuse, uncomplicated
CPT/HCPCS: 36415; 71045; 71046; 80048; 80053; 83605; 85025; 85610; 85730; 87040; 93005; 93970; 96372; 99285; G0378; G0480; J1650; J1885

== ENCOUNTER 2017-07-26 20:50 | Emergency (ER) | payer SELFPAY ==
[2017-07-26 20:50] VITALS: BMI 31.1
[2017-07-26 22:13] VITALS: PULSE 90; RESP 18; TEMP 98.5; O2SAT 99
== END 2017-07-27 05:53 | disposition left against medical advice (07) ==
LOC: H.ER 20:50
DX: Z02.89 Encounter for other administrative examinations (principal)

== ENCOUNTER 2017-08-03 00:37 | Inpatient (IN) | payer MEDICARE ==
[2017-08-03 00:37] VITALS: BMI 31.1
--- NOTE | 2017-08-03 01:43 | ED PDOC ---
Lower Extremity Pain/Injury Time Seen by Provider: 08/03/17 01:05 Chief Complaint (Nursing): Lower Extremity Problem/Injury Chief Complaint (Provider): Lower Extemity Swelling History Per: Patient History/Exam Limitations: no limitations Onset/Duration Of Symptoms: Worse Since (past month) Current Symptoms Are (Timing): Still Present Additional Complaint(s): 67 yo homeless male, with a history of DVT, bilaterally venous stasis ulcers, and chronic cellulitis, presents to the ED complaining of increased leg swelling , onset of 1 month ago that worsened this evening. Patient also reports of weeping lesions with yellow drainage, but denies any fever, chills, cough, or shortness of breath. PMD: None Past Medical History Reviewed: Historical Data, Nursing Documentation, Vital Signs Vital Signs: Last Vital Signs Temp 98.4 F 08/03/17 00:59 Pulse 77 08/03/17 00:59 Resp 18 08/03/17 00:59 BP 144/76 08/03/17 00:59 Pulse Ox 98 08/03/17 00:59 - Medical History PMH: CHF (as per pt history), Deep Vein Thrombosis, Peripheral Edema Denies: Chronic Kidney Disease Other PMH: cellulitis chronic; venous stasis ulcers - Surgical History Surgical History: No Surg Hx - Family History Family History: States: Unknown Family Hx - Social History Current smoker - smoking cessation education provided: No Ex-Smoker (has not smoked in the last 12 months): No Alcohol: None Drugs: Denies - Home Medications Home Medications: Ambulatory Orders Medication Instructions Recorded No Known Home Med 08/03/17 - Allergies Allergies/Adverse Reactions: Allergies Allergy/AdvReac Type Severity Reaction Status Date / Time No Known Allergies Allergy Verified 02/25/17 02:19 Review of Systems ROS Statement: Except As Marked, All Systems Reviewed And Found Negative Constitutional: Negative for: Fever, Chills Respiratory: Negative for: Cough, Shortness of Breath Musculoskeletal: Positive for: Leg Pain (bilateral swelling) Skin: Positive for: Lesions Physical Exam - Reviewed Nursing Documentation Reviewed: Yes Vital Signs Reviewed: Yes - Physical Exam Appears: Positive for: Uncomfortable. Negative for: Well (poor state of hygiene ) Head Exam: Positive for: ATRAUMATIC, NORMAL INSPECTION, NORMOCEPHALIC Skin: Positive for: Warm. Negative for: Normal Color (erythematous) Eye Exam: Positive for: EOMI, Normal appearance, PERRL ENT: Positive for: Normal ENT Inspection Neck: Positive for: Normal, Painless ROM Cardiovascular/Chest: Positive for: Regular Rate, Rhythm. Negative for: Murmur Respiratory: Positive for: Normal Breath Sounds. Negative for: Respiratory Distress Gastrointestinal/Abdominal: Positive for: Normal Exam, Soft. Negative for: Tenderness Back: Positive for: Normal Inspection Extremity: Positive for: Swelling (edema 3+ to lower extremities bilaterally, with multiple scale like lesions with tina yellow drainage) - Laboratory Results Result Diagrams: 08/03/17 01:40 08/03/17 01:40 - ECG O2 Sat by Pulse Oximetry: 98 (RA) Pulse Ox Interpretation: Normal Medical Decision Making Medical Decision Making: Time: --01:08 Impression: --67 yo homeless male with acute onchronic cellulitic changes to lower extremities bilaterally in setting of known history of DVTs Plan: --Labs --Lact acid, plasma --blood culture --heplock insertion --duplex lower extremity US Reassess --02:25 Addendum created by Tadeo Lisa MD on 08/03/2017 2:36 AM Eastern Time ([place] & [place]) THIS REPORT CONTAINS FINDINGS THAT MAY BE CRITICAL TO PATIENT CARE. The findings were verbally communicated via telephone conference with John Oliva at 2:36 AM EDT on 08/03/2017. The findings were acknowledged and understood. Initial Report created on 08/03/2017 2:25 AM Eastern Time ([place] & [place]) EXAM: US Duplex Right Lower Extremity Veins CLINICAL HISTORY: 67 years old, male; Pain and signs and symptoms; Swelling of limb; Lower extremity, bilateral; Leg, lower TECHNIQUE: Real-time duplex ultrasound scan of the right lower extremity veins integrating B-mode twodimensional vascular structure, Doppler spectral analysis, color flow Doppler imaging and compression. COMPARISON: US - DUPLEX LOWER EXTRM VEIN BILAT 2017-07-04 01:49 FINDINGS: Deep veins: Incomplete compressibility of popliteal vein. Partial flow on color or spectral Doppler imaging. Superficial veins: No thrombosis. Soft tissues: No popliteal cyst. IMPRESSION: 1. Nonocclusive DVT within RIGHT lower extremity, similar to previous examination. EXAM: US Duplex Left Lower Extremity Veins CLINICAL HISTORY 67 years old, male; Pain and signs and symptoms; Swelling of limb; Lower extremity, bilateral; Leg, lower TECHNIQUE: Real-time duplex ultrasound scan of the left lower extremity veins integrating B -mode twodimensional vascular structure, Doppler spectral analysis, color flow Doppler imaging and compression. COMPARISON: US - DUPLEX LOWER EXTRM VEIN BILAT 2017-07-04 01:49 FINDINGS: Deep veins: Normal color and spectral Doppler flow. Normal compressibility. No deep vein thrombosis from common femoral to popliteal vein. Superficial veins: No thrombosis. Soft tissues: No popliteal cyst. IMPRESSION: 1. No evidence of DVT within LEFT lower extremity. Thank you for allowing us to participate in the care of your patient. -02:44 Patient case discussed with Dr. Pandya, family practice resident. Diagnosis: DVT of right lower extremity and acute onchronic cellulitis. Patient to be admitted to the hospital. Of note, provider ordered Lovenox. Scribe Attestation: Documented by Telly Demarco acting as a scribe for John Zuleta MD. Provider Attestation: All medical record entries made by the Scribe were at my direction and personally dictated by me. I have reviewed the chart and agree that the record accurately reflects my personal performance of the history, physical exam, medical decision making, and the department course for this patient. I have also personally directed, reviewed, and agree with the discharge instructions and disposition. Disposition - Clinical Impression Clinical Impression: Deep vein thrombosis (DVT), Chronic cellulitis - Patient ED Disposition Is Patient to be Admitted: Yes Doctor Will See Patient In The: Hospital - Disposition Disposition Time: 02:44 Condition: FAIR - Pt Status Changed To: Hospital Disposition Of: Inpatient - Admit Certification Admit to Inpatient:: After my assessment, the patient will require hospitalization for at least two midnights. This is because of the severity of symptoms shown, intensity of services needed, and/or the medical risk in this patient being treated as an outpatient. - POA Present On Arrival: Deep Vein Thrombosis / PE
[2017-08-03 01:57] LABS: BASO # 0.1 K/uL (0.0-0.2); BASO % 0.9 % (0.0-2.0); EOS # 0.3 K/uL (0.0-0.7); EOS % 4.4 % (0.0-4.0); HEMOGLOBIN 11.5 g/dL (12.0-18.0); LYMPH # 1.4 K/uL (1.0-4.3); MEAN CELL VOLUME 84.4 fl (80.0-94.0); MEAN CORPUSCULAR HEMOGLOBIN 27.2 pg (27.0-31.0); MEAN CORPUSCULAR HGB CONC 32.2 g/dL (33.0-37.0); MEAN PLATELET VOLUME 7.9 fl (7.2-11.7); MONO # 0.7 K/uL (0.0-0.8); MONO % 10.4 % (0.0-10.0); NEUT # 4.4 K/uL (1.8-7.0); NEUT % 64.3 % (50.0-75.0); RBC 4.21 Mil/uL (4.40-5.90); RED CELL DISTRIBUTION WIDTH 16.2 % (11.5-14.5); WHITE BLOOD COUNT 6.9 K/uL (4.8-10.8)
[2017-08-03 02:13] LABS: ALB/GLOB RATIO 0.8 (1.0-2.1); ALBUMIN 3.8 g/dL (3.5-5.0); ALT/SGPT 33 U/L (21-72); AST/SGOT 22 U/L (17-59); BLOOD UREA NITROGEN 18 mg/dl (9-20); CALCIUM 9.2 mg/dL (8.4-10.2); GFR AFRICAN-AMERICAN > 60; GFR NON-AFRICAN AMERICAN > 60
--- NOTE | 2017-08-03 02:25 | US ---
EXAM: US Duplex Right Lower Extremity Veins CLINICAL HISTORY: 67 years old, male; Pain and signs and symptoms; Swelling of limb; Lower extremity, bilateral; Leg, lower TECHNIQUE: Real-time duplex ultrasound scan of the right lower extremity veins integrating B-mode two-dimensional vascular structure, Doppler spectral analysis, color flow Doppler imaging and compression. COMPARISON: US - DUPLEX LOWER EXTRM VEIN BILAT 2017-07-04 01:49 FINDINGS: Deep veins: Incomplete compressibility of popliteal vein. Partial flow on color or spectral Doppler imaging. Superficial veins: No thrombosis. Soft tissues: No popliteal cyst. IMPRESSION: 1. Nonocclusive DVT within RIGHT lower extremity, similar to previous examination. EXAM: US Duplex Left Lower Extremity Veins CLINICAL HISTORY: 67 years old, male; Pain and signs and symptoms; Swelling of limb; Lower extremity, bilateral; Leg, lower TECHNIQUE: Real-time duplex ultrasound scan of the left lower extremity veins integrating B-mode two-dimensional vascular structure, Doppler spectral analysis, color flow Doppler imaging and compression. COMPARISON: US - DUPLEX LOWER EXTRM VEIN BILAT 2017-07-04 01:49 FINDINGS: Deep veins: Normal color and spectral Doppler flow. Normal compressibility. No deep vein thrombosis from common femoral to popliteal vein. Superficial veins: No thrombosis. Soft tissues: No popliteal cyst. IMPRESSION: 1. No evidence of DVT within LEFT lower extremity.
[2017-08-03] MEDS ORDERED: Enoxaparin 100 mg Syringe SC STA (02:36)
[2017-08-03] MEDS ORDERED: Piperacillin/Tazobact 3.375 GM in Sodium Chloride 0.9% 100 ML IV STA (02:41)
--- NOTE | 2017-08-03 03:32 | CP.PCM.HP ---
History of Present Illness - History of Present Illness History of Present Illness: 67 yo ,m, Homeless, PMhx/o b/l leg stasis edema lower extremities, chronic leg ulcers, RLE DVT, CHF presents to ED c/o b/l leg swelling for about 1 month, that has been getting worse for the last 2 days, associated with right calf pain for 1 month and patient also reports of weeping lesions with yellow drainage. He denies fever, leg trauma, chest pain, SOB, palpitation, n,v,d, abd pain . Patient was discharged 4 weeks ago for RLE DVT. Patient stated that he took medication given x 7 days ( not sure name of medication) and did not go for refills and had not f/u in our clinic PMD: [facility] last seen Dr Hess 03/22/2017 Allergies:NKDA Meds: none Psurghx: none Pshx: Denies ETOH,rect drugs cig but by ECW: Reports smoking hx of 80 pack years , past Etoh abuse (2-3 (6pack beers) per day)-last smoked and drank Etoh at the end of the when he lost his job and home ER Course VS: Normal LAbs: CBC : 6.9>11.5<223 CMP normal Imaging: LE duplex US: Nonocclusive DVT within RIGHT lower extremity(popliteal vein).( similar to prior US 06/2017) Meds: Lovenox 90 mg sc, Vancomycin 1 gm IV , Zosyn 3.375 mg x 1 dose Status: Full code Present on Admission - Present on Admission Any Indicators Present on Admission: Yes History of DVT/PE: Yes History of Uncontrolled Diabetes: No Urinary Catheter: No Decubitus Ulcer Present: No Review of Systems - Review of Systems All systems: reviewed and no additional remarkable complaints except - Integumentary Integumentary: Dry Skin, Erythema, Skin Ulcer Additional comments: b/l leg redness, right leg superficial ulcer Past Patient History - Past Medical History & Family History Past Medical History?: Yes - Past Social History Alcohol: None Drugs: Denies - CARDIAC Hx Congestive Heart Failure: Yes (as per pt history) Hx Peripheral Edema: Yes - PULMONARY Hx Respiratory Disorders: No - NEUROLOGICAL Hx Neurological Disorder: No - HEENT Hx HEENT Problems: Yes - RENAL Hx Chronic Kidney Disease: No - ENDOCRINE/METABOLIC Hx Endocrine Disorders: No - HEMATOLOGICAL/ONCOLOGICAL Hx Blood Disorders: No - INTEGUMENTARY Hx Dermatological Problems: No - MUSCULOSKELETAL/RHEUMATOLOGICAL Hx Musculoskeletal Disorders: No Hx Falls: No - GASTROINTESTINAL Hx Gastrointestinal Disorders: No - GENITOURINARY/GYNECOLOGICAL Hx Genitourinary Disorders: No - PSYCHIATRIC Hx Psychophysiologic Disorder: No Hx Substance Use: No - SURGICAL HISTORY Hx Surgeries: Yes Hx Eye Surgery: Yes (Left eye Strabismus) - ANESTHESIA Hx Anesthesia: Yes Hx Anesthesia Reactions: No Hx Malignant Hyperthermia: No Meds Allergies/Adverse Reactions: Allergies Allergy/AdvReac Type Severity Reaction Status Date / Time No Known Allergies Allergy Verified 02/25/17 02:19 Physical Exam - Constitutional Appears: Non-toxic, No Acute Distress - Head Exam Head Exam: ATRAUMATIC, NORMOCEPHALIC - Eye Exam Eye Exam: EOMI, Normal appearance. absent: Nystagmus - ENT Exam ENT Exam: Mucous Membranes Moist - Neck Exam Neck exam: Positive for: Normal Inspection - Respiratory Exam Respiratory Exam: Decreased Breath Sounds. absent: Rales, Rhonchi, Wheezes - Cardiovascular Exam Cardiovascular Exam: REGULAR RHYTHM, +S1, +S2 - GI/Abdominal Exam GI & Abdominal Exam: Normal Bowel Sounds, Rebound, Soft. absent: Guarding, Tenderness - Extremities Exam Extremities exam: Positive for: calf tenderness (mild right calf td), pedal edema (1+) Additional comments: erythema and yellowish plaques noted to b/l legs most likely secondary to venous stasis dermatitis.There is superficial ulcer right leg 2cm w/o discharge. Dry and fissured skin both legs. - Back Exam Back exam: NORMAL INSPECTION - Neurological Exam Neurological exam: Alert, Oriented x3 - Skin Skin Exam: Dry, Rash Additional comments: pruritic small erythemato papular rash over thighs, abdomen, arms in linear distribution, similar to scabies infection. Results - Vital Signs Recent Vital Signs: Last Vital Signs Temp 98.4 F 08/03/17 00:59 Pulse 77 08/03/17 00:59 Resp 18 08/03/17 00:59 BP 144/76 08/03/17 00:59 Pulse Ox 98 08/03/17 02:51 - Labs Result Diagrams: 08/03/17 01:40 08/03/17 01:40 Labs: Laboratory Results - last 24 hr 08/03/17 08/03/17 08/03/17 01:40 01:40 01:40 WBC 6.9 RBC 4.21 L Hgb 11.5 L Hct 35.6 MCV 84.4 MCH 27.2 MCHC 32.2 L RDW 16.2 H Plt Count 223 MPV 7.9 Neut % (Auto) 64.3 Lymph % (Auto) 20.0 [place] % (Auto) 10.4 H Eos % (Auto) 4.4 H Baso % (Auto) 0.9 Neut # (Auto) 4.4 Lymph # (Auto) 1.4 [place] # (Auto) 0.7 Eos # (Auto) 0.3 Baso # (Auto) 0.1 Sodium 144 Potassium 4.2 Chloride 105 Carbon Dioxide 26 Anion Gap 17 BUN 18 Creatinine 0.8 Est GFR ( Amer) > 60 Est GFR (Non-Af Amer) > 60 Random Glucose 102 Lactic Acid 1.0 Calcium 9.2 Total Bilirubin 0.5 AST 22 ALT 33 Alkaline Phosphatase 86 Total Protein 8.7 H Albumin 3.8 Globulin 4.8 H Albumin/Globulin Ratio 0.8 L Assessment & Plan - Assessment and Plan (Free Text) Plan: Assessment/Plan 67 yo ,m, Homeless, PMhx/o b/l leg stasis edema lower extremities, chronic leg ulcers, RLE DVT, CHF admitted for DVT RLE, B/l Acute on chronic Cellulitis 1) DVT right leg -Acute . Discharged 1 month ago in [facility]. Patient not compliance. -Us duplex: Nonocclusive DVT within RIGHT lower extremity( right popliteal vein) . -s/p lovenox in ED 90mg Sc -Lovenox 1mg/kg BID 80 mg SC BID -Consider IR for IVC filter 2) Bilateral Acute on Chronic cellulitis -CBC normal -superficial ulcer noted right leg -s/p Vancomycin and Zosyn in ED -c/w vancomycin 1 gm IV BID -Consider Podiatry consult. 3) Scabies -patient homeless -contact isolation -Permetrin cream 5 % TOP -Benadryl 25 mg Q 8h PRN itching 4) Hx/o CHF -by chart. patient denies CHF -EKG 06/2017: NSR. left ant fascicular block, ant septal infart age indeterminated. 5) Leg stasis dermatitis -chronic -will need podiatry evaluation 6) DVT Prophylaxis -Lovenox therapeutic for DVT RLE -Lovenox 80 mg SC BID
[2017-08-03] MEDS ORDERED: Permethrin 5% CREAM TOP ONE ×2 (03:44→14:25)
[2017-08-03] MEDS ORDERED: Piperacillin/Tazobact 3.375 gm Inj IVPB ONE (05:35)
[2017-08-03] MEDS ORDERED: Lindane 1% Lotion(60 ml) TOP ONE (14:21)
--- NOTE | 2017-08-03 14:51 | CP.PCM.CON ---
History of Present Illness - History of Present Illness History of Present Illness: 67 year old male with PMHx b/l leg venous stasis dermatitis, chronic leg ulcerations/plaques, RLE DVT, CHF seen in ICU for dermatological changes to b/l legs. Patient is familiar to our services and has been seen recently for similar problems. Patient denies any new LE complaints since his previous visit. He is still unsure of how long these changes have been present and he feels that they have worsened since he was last discharged from the hospital. Patient admits to never trying to follow up after discharge. He states that his legs cause him pain but that it is manageable, rating it at 5/10. Patient denies any further pedal complaints at this time. He denies noticing any clinical signs of infection but does state that a clear/yellow drainage will sometimes ooze from fissures that open up on his skin. He denies any recent N/V/ F/C/CP/SOB/D Review of Systems - Review of Systems Review of Systems: ROS as per HPI Past Patient History - Past Medical History & Family History Past Medical History?: Yes - Past Social History Smoking Status: Light Smoker < 10 Cigarettes Daily - CARDIAC Hx Congestive Heart Failure: Yes (as per pt history) Hx Peripheral Edema: Yes - PULMONARY Hx Respiratory Disorders: No - NEUROLOGICAL Hx Neurological Disorder: No - HEENT Hx HEENT Problems: Yes - RENAL Hx Chronic Kidney Disease: No - ENDOCRINE/METABOLIC Hx Endocrine Disorders: No - HEMATOLOGICAL/ONCOLOGICAL Hx Blood Disorders: Yes Hx AIDS: No Hx Human Immunodeficiency Virus (HIV): No - INTEGUMENTARY Hx Dermatological Problems: No - MUSCULOSKELETAL/RHEUMATOLOGICAL Hx Musculoskeletal Disorders: No Hx Falls: No - GASTROINTESTINAL Hx Gastrointestinal Disorders: No - GENITOURINARY/GYNECOLOGICAL Hx Genitourinary Disorders: No - PSYCHIATRIC Hx Psychophysiologic Disorder: No Hx Substance Use: No - SURGICAL HISTORY Hx Surgeries: Yes Hx Eye Surgery: Yes (Left eye Strabismus) - ANESTHESIA Hx Anesthesia: Yes Hx Anesthesia Reactions: No Hx Malignant Hyperthermia: No Meds Allergies/Adverse Reactions: Allergies Allergy/AdvReac Type Severity Reaction Status Date / Time No Known Allergies Allergy Verified 02/25/17 02:19 - Medications Medications: Current Medications Acetaminophen (Tylenol 325mg Tab) 650 mg PO Q6 PRN PRN Reason: Pain, Mild (1-3) Acetaminophen (Tylenol 325mg Tab) 650 mg PO Q6 PRN PRN Reason: Fever >100.4 F Betamethasone Dipropion Augmented (Diprolene Af) 0 gm TOP BID [facility] Diphenhydramine HCl (Benadryl) 25 mg PO Q8 PRN PRN Reason: Itching / Pruritus Enoxaparin Sodium (Lovenox) 80 mg SC Q12H [facility] PRN Reason: Protocol Vancomycin HCl 1 gm/ Sodium (Chloride) 250 mls @ 166.667 mls/hr IVPB Q12H [facility] PRN Reason: Protocol Ibuprofen (Motrin Tab) 600 mg PO Q6 PRN PRN Reason: Pain, moderate (4-7) Physical Exam - Constitutional Appears: Well, Non-toxic, No Acute Distress - Extremities Exam Additional comments: Vasc: DP pulses palpable 2/4 b/l. PT pulses non-palpable secondary to 1+ pitting edema b/l. CFT < 3 seconds to all digits. Skin temperature increased to b/l legs Neuro: Epicritic and protective sensation grossly intact b/l Derm: Diffuse white/grider/yellow thickened plaques noted to b/l legs most likely secondary to venous stasis dermatitis with underlying infection/fungal component. Fissuring noted diffusely to both legs. Erythematous changes noted to skin as well which is thought to be secondary to cellulitic vs. venous stasis dermatitis changes. No purulent or serous drainage noted at this time. No malodor, no other clinical signs of infection MSK: POP to b/l legs. No gross deformities noted b/l - Neurological Exam Neurological exam: Alert, Oriented x3 - Psychiatric Exam Psychiatric exam: Normal Affect, Normal Mood Results - Vital Signs Recent Vital Signs: Last Vital Signs Temp 97.5 F L 08/03/17 12:00 Pulse 74 08/03/17 13:00 Resp 12 08/03/17 13:00 BP 106/56 L 08/03/17 13:00 Pulse Ox 98 08/03/17 13:00 - Labs Result Diagrams: 08/03/17 01:40 08/03/17 01:40 Labs: Laboratory Results - last 24 hr 08/03/17 08/03/17 08/03/17 01:40 01:40 01:40 WBC 6.9 RBC 4.21 L Hgb 11.5 L Hct 35.6 MCV 84.4 MCH 27.2 MCHC 32.2 L RDW 16.2 H Plt Count 223 MPV 7.9 Neut % (Auto) 64.3 Lymph % (Auto) 20.0 [place] % (Auto) 10.4 H Eos % (Auto) 4.4 H Baso % (Auto) 0.9 Neut # (Auto) 4.4 Lymph # (Auto) 1.4 [place] # (Auto) 0.7 Eos # (Auto) 0.3 Baso # (Auto) 0.1 Sodium 144 Potassium 4.2 Chloride 105 Carbon Dioxide 26 Anion Gap 17 BUN 18 Creatinine 0.8 Est GFR ( Amer) > 60 Est GFR (Non-Af Amer) > 60 Random Glucose 102 Lactic Acid 1.0 Calcium 9.2 Total Bilirubin 0.5 AST 22 ALT 33 Alkaline Phosphatase 86 NT-Pro-B Natriuret Pep Total Protein 8.7 H Albumin 3.8 Globulin 4.8 H Albumin/Globulin Ratio 0.8 L 08/03/17 07:05 WBC RBC Hgb Hct MCV MCH MCHC RDW Plt Count MPV Neut % (Auto) Lymph % (Auto) [place] % (Auto) Eos % (Auto) Baso % (Auto) Neut # (Auto) Lymph # (Auto) [place] # (Auto) Eos # (Auto) Baso # (Auto) Sodium Potassium Chloride Carbon Dioxide Anion Gap BUN Creatinine Est GFR ( Amer) Est GFR (Non-Af Amer) Random Glucose Lactic Acid Calcium Total Bilirubin AST ALT Alkaline Phosphatase NT-Pro-B Natriuret Pep 1050 H Total Protein Albumin Globulin Albumin/Globulin Ratio Assessment & Plan - Assessment and Plan (Free Text) Assessment: 67 year old male admitted for RLE DVT seen for b/l LE edema with epidermal thickening/plaque formation secondary to probable bacterial/fungal infection Plan: Patient seen and evaluated Plan discussed with attending, Dr. Eddie Alanis, absent leukocytosis Continue IV abx and medical management per Medicine team Betamethasone and Clotrimazole ordered to be applied to b/l extremities tomorrow Patient's legs left open to air at this time No plan for surgical intervention at this time Podiatry will continue to follow while patient in house - Date & Time Date: 08/03/17 Time: 14:56
[2017-08-03] MEDS: Enoxaparin 80 mg Syringe SC SCH (15:06)
--- NOTE | 2017-08-03 16:26 | CARD ---
APPROVED REPORT EKG Measurement Heart [id number] MD [id number] <Conclusion> Normal sinus rhythm Left anterior fascicular block Septal infarct, age undetermined Lateral infarct, age undetermined Abnormal ECG
[2017-08-04] MEDS: Enoxaparin 80 mg Syringe SC SCH ×2 (02:36→16:56)
[2017-08-04 06:12] LABS: HEMOGLOBIN 11.6 g/dL (12.0-18.0); MEAN CELL VOLUME 83.7 fl (80.0-94.0); MEAN CORPUSCULAR HEMOGLOBIN 27.2 pg (27.0-31.0); MEAN CORPUSCULAR HGB CONC 32.5 g/dL (33.0-37.0); RBC 4.27 Mil/uL (4.40-5.90); RED CELL DISTRIBUTION WIDTH 15.8 % (11.5-14.5); WHITE BLOOD COUNT 6.3 K/uL (4.8-10.8)
--- NOTE | 2017-08-04 09:27 | CP.PCM.PN ---
Subjective - Date & Time of Evaluation Date of Evaluation: 08/04/17 Time of Evaluation: 08:00 - Subjective Subjective: pt seen and examined at bedside this morning, sitting upright and enjoying breakfast. Pt denies significant overnight events. Reports improvement in R lower extremity pain. Denies CP/SOB/N/V. Last bm was 2 days ago, however, he states his normal bm is every few days. Objective - Vital Signs/Intake and Output Vital Signs (last 24 hours): Temp Pulse Resp BP Pulse Ox 97.8 F 72 17 122/54 L 99 08/04/17 07:56 08/04/17 07:56 08/04/17 07:56 08/04/17 07:56 08/04/17 07:56 - Medications Medications: Current Medications Acetaminophen (Tylenol 325mg Tab) 650 mg PO Q6 PRN PRN Reason: Pain, Mild (1-3) Acetaminophen (Tylenol 325mg Tab) 650 mg PO Q6 PRN PRN Reason: Fever >100.4 F Betamethasone Dipropion Augmented (Diprolene Af) 0 gm TOP BID [facility] Clotrimazole (Lotrimin Af 1%) 1 applic TOP BID [facility] Diphenhydramine HCl (Benadryl) 25 mg PO Q8 PRN PRN Reason: Itching / Pruritus Last Admin: 08/04/17 01:40 Dose: 25 mg Enoxaparin Sodium (Lovenox) 80 mg SC Q12H [facility] PRN Reason: Protocol Last Admin: 08/04/17 02:36 Dose: 80 mg Vancomycin HCl 1 gm/ Sodium (Chloride) 250 mls @ 166.667 mls/hr IVPB Q12H [facility] PRN Reason: Protocol Last Admin: 08/04/17 02:35 Dose: 166.667 mls/hr Ibuprofen (Motrin Tab) 600 mg PO Q6 PRN PRN Reason: Pain, moderate (4-7) - Labs Labs: 08/04/17 04:20 08/03/17 01:40 - Constitutional Appears: Well, No Acute Distress - Eye Exam Eye Exam: EOMI - Neck Exam Neck Exam: Full ROM - Respiratory Exam Respiratory Exam: Clear to Ausculation Bilateral, NORMAL BREATHING PATTERN. absent: Wheezes - Cardiovascular Exam Cardiovascular Exam: +S1, +S2 - GI/Abdominal Exam GI & Abdominal Exam: Soft, Normal Bowel Sounds. absent: Tenderness - Extremities Exam Extremities Exam: absent: Calf Tenderness Additional comments: Bilateral lower extremity wrapped below the knees. Lower extremity sensation and motor grossly intact. capillary refill <2 seconds. - Neurological Exam Neurological Exam: Alert, Awake, Oriented x3 - Psychiatric Exam Psychiatric exam: Normal Affect, Normal Mood Assessment and Plan - Assessment and Plan (Free Text) Plan: Assessment/Plan 67 yo M Homeless, PMhx/o b/l leg stasis edema lower extremities, chronic leg ulcers, RLE DVT, CHF admitted for DVT at popliteal artery of RLE, B/l venous stasis dermatitis 1) DVT right leg -Acute . Discharged 1 month ago in [facility]. Patient not compliance 2/2 to unable to afford medication -Us duplex: Nonocclusive DVT within RIGHT lower extremity (right popliteal vein) -s/p lovenox in ED 90mg Sc -Lovenox 1mg/kg BID: 80 mg SC BID -IR consulted for IVC filter: recommendations appreciated: pt aware; to be placed today. 2) Bilateral venous stasis dermatitis -CBC: 6.3>11.6/35.8<35.8 -superficial ulcer noted right leg and bilateral plaques -s/p Vancomycin and Zosyn in ED -c/w vancomycin 1 gm IV BID (day2) - Vanc trough on 08/04/2017 before 4th dose - Podiatry consult Dr. Morgan; Consult appreciated: bacterial/fungal treated with betamethasone and clotrimazole 3) Scabies -patient homeless -contact isolation -Permetrin lotion 5 % TOP x1 -Benadryl 25 mg Q 8h PRN itching 4) Hx/o CHF -by chart. patient denies CHF -EKG 06/2017: NSR. left ant fascicular block, ant septal infart age indeterminated. 5) DVT Prophylaxis -Lovenox therapeutic for DVT RLE -Lovenox 80 mg SC BID
[2017-08-04 09:29] LABS: INR 1.1 (0.9-1.2); PROTHROMBIN TIME 11.8 Seconds (9.8-13.1)
[2017-08-04] MEDS: Betamethasone Dip 0.05% Cream(15 gm) TOP SCH ×2 (09:34→16:56)
--- NOTE | 2017-08-04 14:52 | CP.PCM.PN ---
Subjective - Date & Time of Evaluation Date of Evaluation: 08/04/17 Time of Evaluation: 13:00 - Subjective Subjective: Pt. seen in the room prior to transport to for IVC Filter placement. Pt. declines intervention at this time. Pt. explained risks and benefits of IVC filter placement given pt. has a blood clot of the popliteal vein and having failed a course of PO anticoagulation. Risks including Pulmonary embolism, stroke, and explained. Pt. verbalizes understanding acknowledges risks. Pt. declines procedure. Objective - Vital Signs/Intake and Output Vital Signs (last 24 hours): Temp Pulse Resp BP Pulse Ox 98.0 F 67 18 137/68 98 08/04/17 12:11 08/04/17 12:11 08/04/17 12:11 08/04/17 12:11 08/04/17 12:11 - Medications Medications: Current Medications Acetaminophen (Tylenol 325mg Tab) 650 mg PO Q6 PRN PRN Reason: Pain, Mild (1-3) Acetaminophen (Tylenol 325mg Tab) 650 mg PO Q6 PRN PRN Reason: Fever >100.4 F Betamethasone Dipropion Augmented (Diprolene Af) 0 gm TOP BID [facility] Last Admin: 08/04/17 09:34 Dose: 1 applic Clotrimazole (Lotrimin Af 1%) 1 applic TOP BID [facility] Last Admin: 08/04/17 09:35 Dose: 1 applic Diphenhydramine HCl (Benadryl) 25 mg PO Q8 PRN PRN Reason: Itching / Pruritus Last Admin: 08/04/17 01:40 Dose: 25 mg Enoxaparin Sodium (Lovenox) 80 mg SC Q12H [facility] PRN Reason: Protocol Last Admin: 08/04/17 02:36 Dose: 80 mg Vancomycin HCl 1 gm/ Sodium (Chloride) 250 mls @ 166.667 mls/hr IVPB Q12H [facility] PRN Reason: Protocol Last Admin: 08/04/17 02:35 Dose: 166.667 mls/hr Ibuprofen (Motrin Tab) 600 mg PO Q6 PRN PRN Reason: Pain, moderate (4-7) - Labs Labs: 08/04/17 04:20 08/03/17 01:40 PT 11.8 Seconds (9.8-13.1) 08/04/17 09:02 INR 1.1 (0.9-1.2) 08/04/17 09:02
--- NOTE | 2017-08-04 17:25 | CP.PCM.PN ---
Subjective - Date & Time of Evaluation Date of Evaluation: 08/04/17 Time of Evaluation: 17:14 - Subjective Subjective: 67 year old male with PMHx b/l leg venous stasis dermatitis, chronic leg ulcerations/plaques, RLE DVT, CHF seen in ICU for dermatological changes to b/l legs. Patient is AAO x 3 and NAD at time of visit. Denies any acute overnight events and states that legs are still painful b/l but the pain is tolerable. Denies any further pedal complaints at this time. Denies any recent N/V/F/C/CP/ SOB/D Objective - Vital Signs/Intake and Output Vital Signs (last 24 hours): Temp Pulse Resp BP Pulse Ox 98.6 F 62 20 124/68 98 08/04/17 15:54 08/04/17 15:54 08/04/17 15:54 08/04/17 15:54 08/04/17 15:54 - Medications Medications: Current Medications Acetaminophen (Tylenol 325mg Tab) 650 mg PO Q6 PRN PRN Reason: Pain, Mild (1-3) Acetaminophen (Tylenol 325mg Tab) 650 mg PO Q6 PRN PRN Reason: Fever >100.4 F Betamethasone Dipropion Augmented (Diprolene Af) 0 gm TOP BID [facility] Last Admin: 08/04/17 16:56 Dose: 1 applic Clotrimazole (Lotrimin Af 1%) 1 applic TOP BID [facility] Last Admin: 08/04/17 16:56 Dose: 1 applic Diphenhydramine HCl (Benadryl) 25 mg PO Q8 PRN PRN Reason: Itching / Pruritus Last Admin: 08/04/17 01:40 Dose: 25 mg Enoxaparin Sodium (Lovenox) 80 mg SC Q12H [facility] PRN Reason: Protocol Last Admin: 08/04/17 16:56 Dose: 80 mg Vancomycin HCl 1 gm/ Sodium (Chloride) 250 mls @ 166.667 mls/hr IVPB Q12H [facility] PRN Reason: Protocol Last Admin: 08/04/17 16:56 Dose: 166.667 mls/hr Ibuprofen (Motrin Tab) 600 mg PO Q6 PRN PRN Reason: Pain, moderate (4-7) - Labs Labs: 08/04/17 04:20 08/03/17 01:40 PT 11.8 Seconds (9.8-13.1) 08/04/17 09:02 INR 1.1 (0.9-1.2) 08/04/17 09:02 - Constitutional Appears: Well, Non-toxic, No Acute Distress - Extremities Exam Additional comments: Vasc: DP pulses palpable 2/4 b/l. PT pulses non-palpable secondary to 1+ pitting edema b/l. CFT < 3 seconds to all digits. Skin temperature increased to b/l legs Neuro: Epicritic and protective sensation grossly intact b/l Derm: Diffuse white/grider/yellow thickened plaques noted to b/l legs most likely secondary to venous stasis dermatitis with underlying infection/fungal component. Fissuring noted diffusely to both legs. Erythematous changes noted to skin as well which is thought to be secondary to cellulitic vs. venous stasis dermatitis changes. No purulent or serous drainage noted at this time. No malodor, no other clinical signs of infection MSK: POP to b/l legs. No gross deformities noted b/l - Neurological Exam Neurological Exam: Alert, Awake, Oriented x3 - Psychiatric Exam Psychiatric exam: Normal Affect, Normal Mood Assessment and Plan - Assessment and Plan (Free Text) Assessment: 67 year old male admitted for RLE DVT seen for b/l LE edema with epidermal thickening/plaque formation secondary to probable bacterial/fungal infection Plan: Patient seen and evaluated Plan discussed with attending, Dr. Morgan Afebrile, absent leukocytosis Continue IV abx and medical management per Medicine team Betamethasone and Clotrimazole applied to b/l legs and legs wrapped with DSD No plan for surgical intervention at this time Podiatry will continue to follow while patient in house
[2017-08-05] MEDS: Enoxaparin 80 mg Syringe SC SCH ×2 (03:06→17:38)
--- NOTE | 2017-08-05 06:51 | CP.PCM.PN ---
Subjective - Date & Time of Evaluation Date of Evaluation: 08/05/17 Time of Evaluation: 07:20 - Subjective Subjective: Pt seen and examined at bedside this am, resting well. Reports improved lower extremity symptoms. Pt denies significant overnight events. Denies CP/SOB/N/V. Tolerating PO diet. Objective - Vital Signs/Intake and Output Vital Signs (last 24 hours): Temp Pulse Resp BP Pulse Ox 98.9 F 67 18 140/70 98 08/05/17 05:10 08/05/17 05:10 08/05/17 05:10 08/05/17 05:10 08/05/17 05:10 - Medications Medications: Current Medications Acetaminophen (Tylenol 325mg Tab) 650 mg PO Q6 PRN PRN Reason: Pain, Mild (1-3) Acetaminophen (Tylenol 325mg Tab) 650 mg PO Q6 PRN PRN Reason: Fever >100.4 F Betamethasone Dipropion Augmented (Diprolene Af) 0 gm TOP BID [facility] Last Admin: 08/04/17 16:56 Dose: 1 applic Clotrimazole (Lotrimin Af 1%) 1 applic TOP BID [facility] Last Admin: 08/04/17 16:56 Dose: 1 applic Diphenhydramine HCl (Benadryl) 25 mg PO Q8 PRN PRN Reason: Itching / Pruritus Last Admin: 08/04/17 01:40 Dose: 25 mg Enoxaparin Sodium (Lovenox) 80 mg SC Q12H [facility] PRN Reason: Protocol Last Admin: 08/05/17 03:06 Dose: 80 mg Vancomycin HCl 1 gm/ Sodium (Chloride) 250 mls @ 166.667 mls/hr IVPB Q12H [facility] PRN Reason: Protocol Last Admin: 08/05/17 03:07 Dose: 166.667 mls/hr Ibuprofen (Motrin Tab) 600 mg PO Q6 PRN PRN Reason: Pain, moderate (4-7) - Labs Labs: 08/04/17 04:20 08/03/17 01:40 PT 11.8 Seconds (9.8-13.1) 08/04/17 09:02 INR 1.1 (0.9-1.2) 08/04/17 09:02 - Constitutional Appears: Well, No Acute Distress - Eye Exam Eye Exam: EOMI - Neck Exam Neck Exam: Full ROM - Respiratory Exam Respiratory Exam: Clear to Ausculation Bilateral, NORMAL BREATHING PATTERN. absent: Wheezes - Cardiovascular Exam Cardiovascular Exam: REGULAR RHYTHM, +S1, +S2 - GI/Abdominal Exam GI & Abdominal Exam: Soft, Normal Bowel Sounds. absent: Tenderness - Extremities Exam Additional comments: BL lower extremity wrapped. No fluid saturation observed. BL lower extremity motor and sensation grossly intact. cap refill <2 sec; BL lower extremity edema improved. plaques/edema have also improved. - Neurological Exam Neurological Exam: Alert, Awake, Oriented x3 - Psychiatric Exam Psychiatric exam: Normal Affect, Normal Mood Assessment and Plan - Assessment and Plan (Free Text) Plan: Assessment/Plan 67 yo M Homeless, PMhx/o b/l leg stasis edema lower extremities, chronic leg ulcers, RLE DVT, CHF admitted for DVT at popliteal artery of RLE, B/l venous stasis dermatitis 1) DVT right leg -Acute . Discharged 1 month ago in [facility]. Patient not compliance 2/2 to unable to afford medication -Us duplex: Nonocclusive DVT within RIGHT lower extremity (right popliteal vein) -s/p lovenox in ED 90mg Sc -Lovenox 1mg/kg BID: 80 mg SC BID -Pt declined IVC placement: counseling over benefits and risks -Coumadin 5 mg q daily with daily INR 2) Bilateral venous stasis dermatitis -superficial ulcer noted right leg and bilateral plaques, improving -s/p Vancomycin (x4 dose) and Zosyn x1 - Vanc trough: 13.4 - Podiatry consult Dr. Morgan; Consult appreciated: bacterial/fungal treated with betamethasone and clotrimazole 3) Scabies -patient homeless -contact isolation -Permetrin lotion 5 % TOP x1 -Benadryl 25 mg Q 8h PRN pruritis 4) Hx/o CHF -by chart. patient denies CHF -EKG 06/2017: NSR. left ant fascicular block, ant septal infart age indeterminated. 5) DVT Prophylaxis -Lovenox 80 mg SC BID/Warfarin 5 mg
[2017-08-05] MEDS: Betamethasone Dip 0.05% Cream(15 gm) TOP SCH ×2 (08:44→17:36)
--- NOTE | 2017-08-05 13:55 | PQF GENQUE ---
, 2 queries to follow: Please specify the type and acuity of heart failure in your progress notes: versus history of CHF and not currently treated etc. 1. TYPE: Combined systolic and diastolic Heart failure with reduced ejection fraction and diastolic dysfunction Diastolic HFpEF Systolic HFrEF Left heart failure Right heart failure Right heart failure due to left heart failure High Output failure End stage heart failure Other (please specify) OR: Clinically unable to determine OR: Unknown 2. ACUITY: Acute Chronic Acute on chronic Other (please specify) OR Clinically unable to determine OR Unknown ProBNP:1050 H and P: 4) Hx/o CHF -by chart. patient denies CHF -EKG 06/2017: NSR. left ant fascicular block, ant septal infart age indeterminated. This form is a permanent part of the medical record Clarification of your documentation is requested to better reflect the severity of illness and intensity of treatment of your patient. Indicators present [] Specify: [] [] Specify: [] [] Specify: [] [] Specify: [] Location in the medical record that reflects the above clinical findings: [] Treatment Provided: [] PHYSICIAN'S RESPONSE Based on your medical judgment of the clinical indicators outlined above please clarify the following: [] Practitioner response [] If unable to determine, please check the box, sign and date. Present On Admission (POA) Indicator: [] Present at the time of admission [] Not present at the time of admission [] Clinically Undetermined In responding to this query, please exercise your independent professional judgment. The fact that a question is asked does not imply that any particular answer is desired or expected. Thank you for your clarification on this documentation. If you have any questions please call. * Thank you, Yael Marinelli RN ext. #[phone] MTDD
[2017-08-06] MEDS: Enoxaparin 80 mg Syringe SC SCH ×2 (04:07→17:42)
[2017-08-06 09:44] LABS: HEMOGLOBIN 12.7 g/dL (12.0-18.0); MEAN CELL VOLUME 84.1 fl (80.0-94.0); MEAN CORPUSCULAR HEMOGLOBIN 27.3 pg (27.0-31.0); MEAN CORPUSCULAR HGB CONC 32.5 g/dL (33.0-37.0); RBC 4.66 Mil/uL (4.40-5.90); RED CELL DISTRIBUTION WIDTH 15.6 % (11.5-14.5); WHITE BLOOD COUNT 6.3 K/uL (4.8-10.8)
[2017-08-06 10:01] LABS: INR 1.1 (0.9-1.2); PROTHROMBIN TIME 12.1 Seconds (9.8-13.1)
[2017-08-06 10:05] LABS: BLOOD UREA NITROGEN 16 mg/dl (9-20); CALCIUM 9.4 mg/dL (8.4-10.2); GFR AFRICAN-AMERICAN > 60; GFR NON-AFRICAN AMERICAN > 60
[2017-08-06] MEDS: Betamethasone Dip 0.05% Cream(15 gm) TOP SCH (14:24)
--- NOTE | 2017-08-06 15:25 | CP.PCM.PN ---
Subjective - Date & Time of Evaluation Date of Evaluation: 08/06/17 Time of Evaluation: 08:45 - Subjective Subjective: pt seen and evaluated at bedside. Nurse reported that he declined am labs for INR. Pt declined coumadin yesterday. Educated pt on DVT and reasons for coumadin with daily INR. Pt agrees for treatment and daily labs. Denied significant overnight events. Denied cp/sob/n/v. Pt ambulating in room. tolerating po diet. Objective - Vital Signs/Intake and Output Vital Signs (last 24 hours): Temp Pulse Resp BP Pulse Ox 97.2 F L 64 20 131/73 100 08/06/17 12:23 08/06/17 12:23 08/06/17 12:23 08/06/17 12:23 08/06/17 12:23 - Medications Medications: Current Medications Acetaminophen (Tylenol 325mg Tab) 650 mg PO Q6 PRN PRN Reason: Pain, Mild (1-3) Acetaminophen (Tylenol 325mg Tab) 650 mg PO Q6 PRN PRN Reason: Fever >100.4 F Betamethasone Dipropion Augmented (Diprolene Af) 0 gm TOP BID [facility] Last Admin: 08/06/17 14:24 Dose: Not Given Clotrimazole (Lotrimin Af 1%) 1 applic TOP BID [facility] Last Admin: 08/06/17 14:24 Dose: Not Given Diphenhydramine HCl (Benadryl) 25 mg PO Q8 PRN PRN Reason: Itching / Pruritus Last Admin: 08/04/17 01:40 Dose: 25 mg Enoxaparin Sodium (Lovenox) 80 mg SC Q12H [facility] PRN Reason: Protocol Last Admin: 08/06/17 04:07 Dose: 80 mg Ibuprofen (Motrin Tab) 600 mg PO Q6 PRN PRN Reason: Pain, moderate (4-7) Warfarin Sodium (Coumadin) 5 mg PO QD5 [facility] PRN Reason: Protocol Stop: 08/06/17 17:01 - Labs Labs: 08/06/17 09:40 08/06/17 09:40 PT 12.1 Seconds (9.8-13.1) 08/06/17 09:40 INR 1.1 (0.9-1.2) 08/06/17 09:40 APTT 32.0 Seconds (25.6-37.1) 08/06/17 09:40 - Constitutional Appears: Well, No Acute Distress - Eye Exam Eye Exam: EOMI - Neck Exam Neck Exam: Full ROM - Respiratory Exam Respiratory Exam: Clear to Ausculation Bilateral, NORMAL BREATHING PATTERN. absent: Wheezes - Cardiovascular Exam Cardiovascular Exam: +S1, +S2 - GI/Abdominal Exam GI & Abdominal Exam: Soft, Normal Bowel Sounds. absent: Tenderness - Extremities Exam Extremities Exam: absent: Calf Tenderness - Neurological Exam Neurological Exam: Alert, Awake, CN II-XII Intact, Oriented x3 - Psychiatric Exam Psychiatric exam: Normal Affect, Normal Mood Assessment and Plan - Assessment and Plan (Free Text) Plan: Assessment/Plan 67 yo M Homeless, PMhx/o b/l leg stasis edema lower extremities, chronic leg ulcers, RLE DVT, CHF admitted for DVT at popliteal artery of RLE, B/l venous stasis dermatitis DVT right leg -Acute . Discharged 1 month ago in [facility]. Patient not compliance 2/2 to unable to afford medication -Us duplex: Nonocclusive DVT within RIGHT lower extremity (right popliteal vein) -s/p lovenox in ED 90mg Sc -Lovenox 1mg/kg BID: 80 mg SC BID -Pt declined IVC placement: counseling over benefits and risks -Coumadin 5 mg q daily with daily INR -INR 08/06/2017: 1.1 Bilateral venous stasis dermatitis -superficial ulcer noted right leg and bilateral plaques, improving -s/p Vancomycin (x4 dose) and Zosyn x1 -Vanc trough: 13.4 -Podiatry consult Dr. Morgan; Consult appreciated: bacterial/fungal treated with betamethasone and clotrimazole Scabies -patient homeless -Permetrin lotion 5 % TOP x1 -Benadryl 25 mg Q 8h PRN pruritis Hx/o CHF -by chart. patient denies CHF -EKG 06/2017: NSR. left ant fascicular block, ant septal infart age indeterminated. DVT Prophylaxis -Lovenox 80 mg SC BID/Warfarin 5 mg
[2017-08-07] MEDS: Enoxaparin 80 mg Syringe SC SCH ×2 (03:30→17:39)
[2017-08-07 07:21] LABS: INR 1.2 (0.9-1.2); PROTHROMBIN TIME 13.7 Seconds (9.8-13.1)
--- NOTE | 2017-08-07 12:37 | CP.PCM.PN ---
Subjective - Date & Time of Evaluation Date of Evaluation: 08/07/17 Time of Evaluation: 08:00 - Subjective Subjective: Pt. seen at bedside this morning, sitting upright in no distress. Pt. with no complaints, Overnight events reviewed with patient. Pt. refused Lovenox overnight. Risks and Benefits explained to patients of Lovenox therapy and coumadin therapy. Pt. verbalizes understanding and agrees to therapy. Objective - Vital Signs/Intake and Output Vital Signs (last 24 hours): Temp Pulse Resp BP Pulse Ox 97.9 F 57 L 18 112/68 99 08/07/17 08:17 08/07/17 08:17 08/07/17 08:17 08/07/17 08:17 08/07/17 08:17 - Medications Medications: Current Medications Acetaminophen (Tylenol 325mg Tab) 650 mg PO Q6 PRN PRN Reason: Pain, Mild (1-3) Acetaminophen (Tylenol 325mg Tab) 650 mg PO Q6 PRN PRN Reason: Fever >100.4 F Betamethasone Dipropion Augmented (Diprolene Af) 0 gm TOP DAILY [facility] Clotrimazole (Lotrimin Af 1%) 1 applic TOP DAILY [facility] Diphenhydramine HCl (Benadryl) 25 mg PO Q8 PRN PRN Reason: Itching / Pruritus Last Admin: 08/04/17 01:40 Dose: 25 mg Enoxaparin Sodium (Lovenox) 80 mg SC Q12H [facility] PRN Reason: Protocol Last Admin: 08/07/17 03:30 Dose: Not Given Ibuprofen (Motrin Tab) 600 mg PO Q6 PRN PRN Reason: Pain, moderate (4-7) Warfarin Sodium (Coumadin) 5 mg PO QD5 [facility] PRN Reason: Protocol Stop: 08/07/17 17:01 - Labs Labs: 08/06/17 09:40 08/06/17 09:40 PT 13.7 Seconds (9.8-13.1) H 08/07/17 05:25 INR 1.2 (0.9-1.2) 08/07/17 05:25 APTT 32.0 Seconds (25.6-37.1) 08/06/17 09:40 - Constitutional Appears: Non-toxic, No Acute Distress - Eye Exam Eye Exam: Normal appearance. absent: Scleral icterus - ENT Exam ENT Exam: Mucous Membranes Moist - Neck Exam Neck Exam: Normal Inspection - Respiratory Exam Respiratory Exam: Clear to Ausculation Bilateral, NORMAL BREATHING PATTERN - Cardiovascular Exam Cardiovascular Exam: REGULAR RHYTHM, +S1, +S2 - GI/Abdominal Exam GI & Abdominal Exam: Soft. absent: Tenderness - Extremities Exam Extremities Exam: Normal Capillary Refill. absent: Tenderness - Neurological Exam Neurological Exam: Alert, Awake, Oriented x3 - Psychiatric Exam Psychiatric exam: Flat Affect. absent: Homicidal Ideation, Suicidal Ideation Assessment and Plan - Assessment and Plan (Free Text) Assessment: 67 y.o. male with Rt. lower leg DVT on Lovenox 80mg BID on Bridging therapy with Coumadin 5mg with sub-therapeutic INR and refusing Lovenox and Coumadin. Assessment/Plan DVT right leg- Us duplex: Nonocclusive DVT within RIGHT lower extremity (right popliteal vein) 1- Continue Lovenox 80mg BID 2- Continue Coumadin 5mg PO daily 3- INR check daily 4- Pt. explained the risks and benefits of refusing Bridging therapy Pt. verbalizes understanding and agrees to therapy. Diet 1- Regular Code Status 1- Full
[2017-08-07] MEDS: Betamethasone Dip 0.05% Cream(15 gm) TOP SCH (14:22)
--- NOTE | 2017-08-07 14:46 | CP.PCM.PN ---
Subjective - Date & Time of Evaluation Date of Evaluation: 08/07/17 Time of Evaluation: 14:44 - Subjective Subjective: Podiatry progress note for Dr. Morgan 67 year old male with PMHx b/l leg venous stasis dermatitis, chronic leg ulcerations/plaques, RLE DVT, CHF seen at bedside for dermatological changes to b/l legs. Patient is AAO x 3 and NAD at time of visit. Denies any acute overnight events and states that legs are still painful b/l but the pain is tolerable. Denies any further pedal complaints at this time. Denies any recent N /V/F/C/CP/SOB/D. Patient states that he only want his right leg dressed today Objective - Vital Signs/Intake and Output Vital Signs (last 24 hours): Temp Pulse Resp BP Pulse Ox 97.9 F 57 L 18 112/68 99 08/07/17 08:17 08/07/17 08:17 08/07/17 08:17 08/07/17 08:17 08/07/17 08:17 - Medications Medications: Current Medications Acetaminophen (Tylenol 325mg Tab) 650 mg PO Q6 PRN PRN Reason: Pain, Mild (1-3) Acetaminophen (Tylenol 325mg Tab) 650 mg PO Q6 PRN PRN Reason: Fever >100.4 F Betamethasone Dipropion Augmented (Diprolene Af) 0 gm TOP DAILY [facility] Last Admin: 08/07/17 14:22 Dose: 1 unit Clotrimazole (Lotrimin Af 1%) 1 applic TOP DAILY [facility] Last Admin: 08/07/17 14:23 Dose: 1 u Diphenhydramine HCl (Benadryl) 25 mg PO Q8 PRN PRN Reason: Itching / Pruritus Last Admin: 08/04/17 01:40 Dose: 25 mg Enoxaparin Sodium (Lovenox) 80 mg SC Q12H [facility] PRN Reason: Protocol Last Admin: 08/07/17 03:30 Dose: Not Given Ibuprofen (Motrin Tab) 600 mg PO Q6 PRN PRN Reason: Pain, moderate (4-7) Warfarin Sodium (Coumadin) 5 mg PO QD5 [facility] PRN Reason: Protocol Stop: 08/07/17 17:01 - Labs Labs: 08/06/17 09:40 04/20/18 09:40 PT 13.7 Seconds (9.8-13.1) H 08/07/17 05:25 INR 1.2 (0.9-1.2) 08/07/17 05:25 APTT 32.0 Seconds (25.6-37.1) 08/06/17 09:40 - Constitutional Appears: Well, Non-toxic, No Acute Distress - Extremities Exam Additional comments: Vasc: DP pulses palpable 2/4 b/l. PT pulses non-palpable secondary to 1+ pitting edema b/l. CFT < 3 seconds to all digits. Skin temperature increased to b/l legs Neuro: Epicritic and protective sensation grossly intact b/l Derm: Diffuse white/grider/yellow thickened plaques noted to b/l legs most likely secondary to venous stasis dermatitis with underlying infection/fungal component. Fissuring noted diffusely to both legs. Erythematous changes noted to skin as well which is thought to be secondary to cellulitic vs. venous stasis dermatitis changes. No purulent or serous drainage noted at this time. No malodor, no other clinical signs of infection. All dermatological changes noted to be improving at this time MSK: POP to b/l legs. No gross deformities noted b/l - Neurological Exam Neurological Exam: Alert, Awake, Oriented x3 - Psychiatric Exam Psychiatric exam: Normal Affect, Normal Mood Assessment and Plan - Assessment and Plan (Free Text) Assessment: 67 year old male with PMHx b/l leg venous stasis dermatitis, chronic leg ulcerations/plaques, RLE DVT, CHF seen at bedside for dermatological changes to b/l legs Plan: Patient seen and evaluated Plan discussed with attending, Dr. Morgan Afebrile, absent leukocytosis Continue IV abx and medical management per Medicine team Betamethasone and Clotrimazole applied to right leg and leg wrapped with DSD No plan for surgical intervention at this time Upon discharge, patient to follow up in wound care center Podiatry will continue to follow while patient in house
[2017-08-07 15:51] VITALS: RESP 20
[2017-08-08] MEDS: Enoxaparin 80 mg Syringe SC SCH ×2 (02:19→21:14)
[2017-08-08 08:08] LABS: INR 1.6 (0.9-1.2); PROTHROMBIN TIME 17.8 Seconds (9.8-13.1)
--- NOTE | 2017-08-08 08:36 | CP.PCM.PN ---
Subjective - Date & Time of Evaluation Date of Evaluation: 08/08/17 Time of Evaluation: 08:30 - Subjective Subjective: Pt seen and examined at bedside this am. Denies significant overnight events. Denies CP/SOB/N/V/ lower extremity pain. Ambulating without difficulty. Tolerating PO diet. Objective - Vital Signs/Intake and Output Vital Signs (last 24 hours): Temp Pulse Resp BP Pulse Ox 97.4 F L 64 20 113/65 99 08/08/17 08:11 08/08/17 08:11 08/08/17 08:11 08/08/17 08:11 08/08/17 08:11 - Medications Medications: Current Medications Acetaminophen (Tylenol 325mg Tab) 650 mg PO Q6 PRN PRN Reason: Pain, Mild (1-3) Acetaminophen (Tylenol 325mg Tab) 650 mg PO Q6 PRN PRN Reason: Fever >100.4 F Betamethasone Dipropion Augmented (Diprolene Af) 0 gm TOP DAILY [facility] Last Admin: 08/07/17 14:22 Dose: 1 unit Clotrimazole (Lotrimin Af 1%) 1 applic TOP DAILY [facility] Last Admin: 08/07/17 14:23 Dose: 1 u Diphenhydramine HCl (Benadryl) 25 mg PO Q8 PRN PRN Reason: Itching / Pruritus Last Admin: 08/04/17 01:40 Dose: 25 mg Enoxaparin Sodium (Lovenox) 80 mg SC Q12H [facility] PRN Reason: Protocol Last Admin: 08/08/17 02:19 Dose: Not Given Ibuprofen (Motrin Tab) 600 mg PO Q6 PRN PRN Reason: Pain, moderate (4-7) Warfarin Sodium (Coumadin) 5 mg PO QD5 [facility] PRN Reason: Protocol Stop: 08/08/17 17:01 - Labs Labs: 08/06/17 09:40 08/06/17 09:40 PT 17.8 Seconds (9.8-13.1) H 08/08/17 05:30 INR 1.6 (0.9-1.2) H 08/08/17 05:30 APTT 32.0 Seconds (25.6-37.1) 08/06/17 09:40 - Constitutional Appears: No Acute Distress - Eye Exam Eye Exam: EOMI - Neck Exam Neck Exam: Full ROM - Respiratory Exam Respiratory Exam: Clear to Ausculation Bilateral, NORMAL BREATHING PATTERN. absent: Wheezes - Cardiovascular Exam Cardiovascular Exam: +S1, +S2 - GI/Abdominal Exam GI & Abdominal Exam: Soft, Normal Bowel Sounds. absent: Tenderness - Extremities Exam Extremities Exam: absent: Calf Tenderness - Neurological Exam Neurological Exam: Alert, Awake, CN II-XII Intact, Oriented x3 - Psychiatric Exam Psychiatric exam: Normal Affect, Normal Mood Assessment and Plan - Assessment and Plan (Free Text) Plan: 67 y.o. male with Rt. lower leg DVT on Lovenox 80mg BID on Bridging therapy with Coumadin 5mg with sub-therapeutic INR and refusing Lovenox;. Assessment/Plan DVT right leg- Us duplex: Nonocclusive DVT within RIGHT lower extremity (right popliteal vein) 1- Continue Lovenox 80mg BID; however, refusing 2- Continue Coumadin 5mg PO daily 3- INR check daily: 1.6 4- Pt. explained the risks and benefits of refusing Bridging therapy Pt. verbalizes understanding and agrees to therapy. Bilateral venous stasis dermatitis -superficial ulcer noted right leg and bilateral plaques, improving -s/p Vancomycin (x4 dose) and Zosyn x1 -Vanc trough: 13.4 -Podiatry consult Dr. Morgan; Consult appreciated: bacterial/fungal treated with betamethasone and clotrimazole Mental status: -Pt refusing treatment, consulted psych for eval: decision making; Recommendations appreciated Diet 1- Regular Code Status 1- Full
[2017-08-08] MEDS: Betamethasone Dip 0.05% Cream(15 gm) TOP SCH (16:31)
--- NOTE | 2017-08-08 17:17 | CP.PCM.CON ---
History of Present Illness - History of Present Illness History of Present Illness: This is a 67 year old male with no known psych history and admitted because of clots in leg due to DVT and recently d/c with similar presentation and never followed up in clinic and now has swollen leg with weeping lesiions and psych consult called for evaluation of competency because pt has been refusing treatment including bridging therapy .pt has poor insight regarding the medical issues but says that he has been compliant with treatment and does not feel treatment is helping him.pt denies any h/o psychiatric issues and denies depression and says that he is 67 year old now and does not want any invasive and aggressive treatment at this point and wants to go home tomorrow. Past Patient History - Past Medical History & Family History Past Medical History?: Yes - Past Social History Smoking Status: Light Smoker < 10 Cigarettes Daily - CARDIAC Hx Congestive Heart Failure: Yes (as per pt history) Hx Peripheral Edema: Yes - PULMONARY Hx Respiratory Disorders: No - NEUROLOGICAL Hx Neurological Disorder: No - HEENT Hx HEENT Problems: Yes - RENAL Hx Chronic Kidney Disease: No - ENDOCRINE/METABOLIC Hx Endocrine Disorders: No - HEMATOLOGICAL/ONCOLOGICAL Hx Blood Disorders: Yes Hx AIDS: No Hx Human Immunodeficiency Virus (HIV): No - INTEGUMENTARY Hx Dermatological Problems: No - MUSCULOSKELETAL/RHEUMATOLOGICAL Hx Musculoskeletal Disorders: No Hx Falls: No - GASTROINTESTINAL Hx Gastrointestinal Disorders: No - GENITOURINARY/GYNECOLOGICAL Hx Genitourinary Disorders: No - PSYCHIATRIC Hx Psychophysiologic Disorder: No Hx Substance Use: No - SURGICAL HISTORY Hx Surgeries: Yes Hx Eye Surgery: Yes (Left eye Strabismus) - ANESTHESIA Hx Anesthesia: Yes Hx Anesthesia Reactions: No Hx Malignant Hyperthermia: No Meds Allergies/Adverse Reactions: Allergies Allergy/AdvReac Type Severity Reaction Status Date / Time No Known Allergies Allergy Verified 02/25/17 02:19 - Medications Medications: Current Medications Acetaminophen (Tylenol 325mg Tab) 650 mg PO Q6 PRN PRN Reason: Pain, Mild (1-3) Acetaminophen (Tylenol 325mg Tab) 650 mg PO Q6 PRN PRN Reason: Fever >100.4 F Betamethasone Dipropion Augmented (Diprolene Af) 0 gm TOP DAILY [facility] Last Admin: 08/08/17 16:31 Dose: Not Given Clotrimazole (Lotrimin Af 1%) 1 applic TOP DAILY [facility] Last Admin: 08/08/17 08:59 Dose: 1 u Diphenhydramine HCl (Benadryl) 25 mg PO Q8 PRN PRN Reason: Itching / Pruritus Last Admin: 08/04/17 01:40 Dose: 25 mg Enoxaparin Sodium (Lovenox) 80 mg SC Q12@0900 [facility] PRN Reason: Protocol Ibuprofen (Motrin Tab) 600 mg PO Q6 PRN PRN Reason: Pain, moderate (4-7) Physical Exam - Psychiatric Exam Psychiatric exam: Normal Affect, Normal Mood Additional comments: Pt is alert,oriented x3 with intact memory and fair concentration.pt denies hallucinations and no delusion noted.no psychosis.pt denies suicidal ideation .pt has poor insight regarding his medical issues and need a lot of education about his medical issues.pt however willing to followup with his doctor in outpt. Results - Vital Signs Recent Vital Signs: Last Vital Signs Temp 97.6 F 08/08/17 16:13 Pulse 95 H 08/08/17 16:13 Resp 20 08/08/17 16:13 BP 112/77 08/08/17 16:13 Pulse Ox 97 08/08/17 16:13 - Labs Result Diagrams: 08/09/17 08:12 08/09/17 08:12 Labs: Laboratory Results - last 24 hr 08/08/17 05:30 PT 17.8 H INR 1.6 H
[2017-08-09 06:53] LABS: INR 1.7 (0.9-1.2); PROTHROMBIN TIME 19.1 Seconds (9.8-13.1)
--- NOTE | 2017-08-09 06:55 | CP.PCM.PN ---
Subjective - Date & Time of Evaluation Date of Evaluation: 08/09/17 Time of Evaluation: 06:52 - Subjective Subjective: Podiatry progress note for Dr Morgan 67 year old male with PMHx b/l leg venous stasis dermatitis, chronic leg ulcerations/plaques, RLE DVT, CHF seen at bedside for dermatological changes to b/l legs. Patient is refusing to be seen at this time as he states he will be going home today and does not want any more treatment for his legs. Objective - Vital Signs/Intake and Output Vital Signs (last 24 hours): Temp Pulse Resp BP Pulse Ox 98.2 F 80 20 147/78 97 08/09/17 00:16 08/09/17 00:16 08/09/17 00:16 08/09/17 00:16 08/09/17 00:16 - Medications Medications: Current Medications Acetaminophen (Tylenol 325mg Tab) 650 mg PO Q6 PRN PRN Reason: Pain, Mild (1-3) Acetaminophen (Tylenol 325mg Tab) 650 mg PO Q6 PRN PRN Reason: Fever >100.4 F Betamethasone Dipropion Augmented (Diprolene Af) 0 gm TOP DAILY [facility] Last Admin: 08/08/17 16:31 Dose: Not Given Clotrimazole (Lotrimin Af 1%) 1 applic TOP DAILY [facility] Last Admin: 08/08/17 08:59 Dose: 1 u Diphenhydramine HCl (Benadryl) 25 mg PO Q8 PRN PRN Reason: Itching / Pruritus Last Admin: 08/04/17 01:40 Dose: 25 mg Enoxaparin Sodium (Lovenox) 80 mg SC Q12@0900 [facility] PRN Reason: Protocol Last Admin: 08/08/17 21:14 Dose: Not Given Ibuprofen (Motrin Tab) 600 mg PO Q6 PRN PRN Reason: Pain, moderate (4-7) - Labs Labs: 08/06/17 09:40 08/06/17 09:40 PT 17.8 Seconds (9.8-13.1) H 08/08/17 05:30 INR 1.6 (0.9-1.2) H 08/08/17 05:30 APTT 32.0 Seconds (25.6-37.1) 08/06/17 09:40 - Constitutional Appears: Well, Non-toxic, No Acute Distress - Extremities Exam Additional comments: Unable to perform LE evaluation because patient refused treatment - Neurological Exam Neurological Exam: Alert, Awake, Oriented x3 - Psychiatric Exam Psychiatric exam: Normal Affect, Normal Mood Assessment and Plan - Assessment and Plan (Free Text) Assessment: 67 year old male with PMHx b/l leg venous stasis dermatitis, chronic leg ulcerations/plaques, RLE DVT, CHF seen at bedside for dermatological changes to b/l legs Plan: Patient refused treatment today Patient to f/u in wound care center following discharge from hospital Podiatry will continue to follow while patient in house
[2017-08-09 08:13] LABS: HEMOGLOBIN 13.9 g/dL (12.0-18.0); MEAN CELL VOLUME 83.7 fl (80.0-94.0); MEAN CORPUSCULAR HEMOGLOBIN 27.7 pg (27.0-31.0); MEAN CORPUSCULAR HGB CONC 33.1 g/dL (33.0-37.0); RED CELL DISTRIBUTION WIDTH 16.2 % (11.5-14.5); WHITE BLOOD COUNT 8.5 K/uL (4.8-10.8)
[2017-08-09 08:33] VITALS: BP 122/75; PULSE 84; TEMP 97.6; O2SAT 99
[2017-08-09 08:40] LABS: ALB/GLOB RATIO 0.8 (1.0-2.1); ALBUMIN 4.4 g/dL (3.5-5.0); ALT/SGPT 35 U/L (21-72); AST/SGOT 32 U/L (17-59); BLOOD UREA NITROGEN 23 mg/dl (9-20); CALCIUM 10.2 mg/dL (8.4-10.2); GFR AFRICAN-AMERICAN > 60; GFR NON-AFRICAN AMERICAN > 60
[2017-08-09] MEDS: Enoxaparin 80 mg Syringe SC SCH (09:39)
--- NOTE | 2017-08-09 10:09 | CP.PCM.PN ---
Subjective - Date & Time of Evaluation Date of Evaluation: 08/09/17 Time of Evaluation: 07:20 Objective - Vital Signs/Intake and Output Vital Signs (last 24 hours): Temp Pulse Resp BP Pulse Ox 97.6 F 84 20 122/75 99 08/09/17 08:32 08/09/17 08:32 08/09/17 08:32 08/09/17 08:32 08/09/17 08:32 - Medications Medications: Current Medications Acetaminophen (Tylenol 325mg Tab) 650 mg PO Q6 PRN PRN Reason: Pain, Mild (1-3) Acetaminophen (Tylenol 325mg Tab) 650 mg PO Q6 PRN PRN Reason: Fever >100.4 F Betamethasone Dipropion Augmented (Diprolene Af) 0 gm TOP DAILY [facility] Last Admin: 08/08/17 16:31 Dose: Not Given Clotrimazole (Lotrimin Af 1%) 1 applic TOP DAILY [facility] Last Admin: 08/09/17 09:40 Dose: 1 u Diphenhydramine HCl (Benadryl) 25 mg PO Q8 PRN PRN Reason: Itching / Pruritus Last Admin: 08/04/17 01:40 Dose: 25 mg Enoxaparin Sodium (Lovenox) 80 mg SC Q12@0900 [facility] PRN Reason: Protocol Last Admin: 08/09/17 09:39 Dose: Not Given Ibuprofen (Motrin Tab) 600 mg PO Q6 PRN PRN Reason: Pain, moderate (4-7) - Labs Labs: 08/09/17 08:12 08/09/17 08:12 PT 19.1 Seconds (9.8-13.1) H 08/09/17 05:45 INR 1.7 (0.9-1.2) H 08/09/17 05:45 APTT 32.0 Seconds (25.6-37.1) 08/06/17 09:40
--- NOTE | 2017-08-09 11:42 | CP.PCM.DIS ---
<Ke Sierra - Last Filed: 08/09/17 13:24> Provider - Provider Date of Admission: 08/03/17 02:39 Attending physician: Latoya Russell MD Hospital Course - Lab Results Lab Results: Micro Results 08/03/17 01:55 Blood Blood Culture - Final NO GROWTH AFTER 5 DAYS 08/03/17 01:55 Blood Gram Stain - Final TEST NOT PERFORMED 08/03/17 01:40 Blood Blood Culture - Final NO GROWTH AFTER 5 DAYS 08/03/17 01:40 Blood Gram Stain - Final TEST NOT PERFORMED 08/03/17 10:50 Naris MRSA Culture (Admit) - Final MRSA NOT DETECTED Most Recent Lab Values WBC 8.5 K/uL (4.8-10.8) 08/09/17 08:12 RBC 5.00 Mil/uL (4.40-5.90) 08/09/17 08:12 Hgb 13.9 g/dL (12.0-18.0) 08/09/17 08:12 Hct 41.9 % (35.0-51.0) 08/09/17 08:12 MCV 83.7 fl (80.0-94.0) 08/09/17 08:12 MCH 27.7 pg (27.0-31.0) 08/09/17 08:12 MCHC 33.1 g/dL (33.0-37.0) 08/09/17 08:12 RDW 16.2 % (11.5-14.5) H 08/09/17 08:12 Plt Count 267 K/uL (130-400) 08/09/17 08:12 MPV 7.9 fl (7.2-11.7) 08/03/17 01:40 Neut % (Auto) 64.3 % (50.0-75.0) 08/03/17 01:40 Lymph % (Auto) 20.0 % (20.0-40.0) 08/03/17 01:40 Dolores % (Auto) 10.4 % (0.0-10.0) H 08/03/17 01:40 Eos % (Auto) 4.4 % (0.0-4.0) H 08/03/17 01:40 Baso % (Auto) 0.9 % (0.0-2.0) 08/03/17 01:40 Neut # (Auto) 4.4 K/uL (1.8-7.0) 08/03/17 01:40 Lymph # (Auto) 1.4 K/uL (1.0-4.3) 08/03/17 01:40 Dolores # (Auto) 0.7 K/uL (0.0-0.8) 08/03/17 01:40 Eos # (Auto) 0.3 K/uL (0.0-0.7) 08/03/17 01:40 Baso # (Auto) 0.1 K/uL (0.0-0.2) 08/03/17 01:40 PT 19.1 Seconds (9.8-13.1) H 08/09/17 05:45 INR 1.7 (0.9-1.2) H 08/09/17 05:45 APTT 32.0 Seconds (25.6-37.1) 08/06/17 09:40 Sodium 149 mmol/l (132-148) H 08/09/17 08:12 Potassium 4.4 MMOL/L (3.6-5.0) 08/09/17 08:12 Chloride 105 mmol/L (98-107) 08/09/17 08:12 Carbon Dioxide 24 mmol/L (22-30) 08/09/17 08:12 Anion Gap 24 (10-20) H 08/09/17 08:12 BUN 23 mg/dl (9-20) H 08/09/17 08:12 Creatinine 0.9 mg/dl (0.8-1.5) 08/09/17 08:12 Est GFR ( Amer) > 60 08/09/17 08:12 Est GFR (Non-Af Amer) > 60 08/09/17 08:12 Random Glucose 105 mg/dL (75-110) 08/09/17 08:12 Lactic Acid 1.0 MMOL/L (0.7-2.1) 08/03/17 01:40 Calcium 10.2 mg/dL (8.4-10.2) 08/09/17 08:12 Total Bilirubin 0.4 mg/dl (0.2-1.3) 08/09/17 08:12 AST 32 U/L (17-59) 08/09/17 08:12 ALT 35 U/L (21-72) 08/09/17 08:12 Alkaline Phosphatase 80 U/L (38-126) 08/09/17 08:12 NT-Pro-B Natriuret Pep 1050 pg/ml (0-900) H 08/03/17 07:05 Total Protein 9.6 G/DL (6.3-8.2) H 08/09/17 08:12 Albumin 4.4 g/dL (3.5-5.0) 08/09/17 08:12 Globulin 5.2 gm/dL (2.2-3.9) H 08/09/17 08:12 Albumin/Globulin Ratio 0.8 (1.0-2.1) L 08/09/17 08:12 Vancomycin Trough 13.4 ug/mL (5.0-10.0) H 08/04/17 14:35 Discharge Plan - Discharge Medications Prescriptions: Betamethasone Dip 0.05% [Diprolene AF] 1 appl TOP DAILY #1 tube Clotrimazole 1% [Lotrimin AF 1%] 1 applic TOP DAILY #1 bottle Warfarin [Coumadin] 5 mg PO QD5 #7 tab - Follow Up Plan Condition: FAIR Disposition: HOME/ ROUTINE Instructions: Deep Vein Thrombosis (Blood Clots in the Legs) (DC), Cellulitis ( Skin Infection), Adult (DC) Additional Inst[facility]: [facility] and [facility] Referrals: [facility] [place] [Outside] Jaycee Morgan DPM [Staff Provider] - <Mathieu Velasquez - Last Filed: 08/09/17 16:35> Provider - Provider Date of Admission: 08/03/17 02:39 Attending physician: Latoya Russell MD Time Spent in preparation of Discharge (in minutes): 20 Hospital Course - Lab Results Lab Results: Micro Results 08/03/17 01:55 Blood Blood Culture - Final NO GROWTH AFTER 5 DAYS 08/03/17 01:55 Blood Gram Stain - Final TEST NOT PERFORMED 08/03/17 01:40 Blood Blood Culture - Final NO GROWTH AFTER 5 DAYS 08/03/17 01:40 Blood Gram Stain - Final TEST NOT PERFORMED 08/03/17 10:50 Naris MRSA Culture (Admit) - Final MRSA NOT DETECTED Most Recent Lab Values WBC 8.5 K/uL (4.8-10.8) 08/09/17 08:12 RBC 5.00 Mil/uL (4.40-5.90) 08/09/17 08:12 Hgb 13.9 g/dL (12.0-18.0) 08/09/17 08:12 Hct 41.9 % (35.0-51.0) 08/09/17 08:12 MCV 83.7 fl (80.0-94.0) 08/09/17 08:12 MCH 27.7 pg (27.0-31.0) 08/09/17 08:12 MCHC 33.1 g/dL (33.0-37.0) 08/09/17 08:12 RDW 16.2 % (11.5-14.5) H 08/09/17 08:12 Plt Count 267 K/uL (130-400) 08/09/17 08:12 MPV 7.9 fl (7.2-11.7) 08/03/17 01:40 Neut % (Auto) 64.3 % (50.0-75.0) 08/03/17 01:40 Lymph % (Auto) 20.0 % (20.0-40.0) 08/03/17 01:40 Dolores % (Auto) 10.4 % (0.0-10.0) H 08/03/17 01:40 Eos % (Auto) 4.4 % (0.0-4.0) H 08/03/17 01:40 Baso % (Auto) 0.9 % (0.0-2.0) 08/03/17 01:40 Neut # (Auto) 4.4 K/uL (1.8-7.0) 08/03/17 01:40 Lymph # (Auto) 1.4 K/uL (1.0-4.3) 08/03/17 01:40 Dolores # (Auto) 0.7 K/uL (0.0-0.8) 08/03/17 01:40 Eos # (Auto) 0.3 K/uL (0.0-0.7) 08/03/17 01:40 Baso # (Auto) 0.1 K/uL (0.0-0.2) 08/03/17 01:40 PT 19.1 Seconds (9.8-13.1) H 08/09/17 05:45 INR 1.7 (0.9-1.2) H 08/09/17 05:45 APTT 32.0 Seconds (25.6-37.1) 08/06/17 09:40 Sodium 149 mmol/l (132-148) H 08/09/17 08:12 Potassium 4.4 MMOL/L (3.6-5.0) 08/09/17 08:12 Chloride 105 mmol/L (98-107) 08/09/17 08:12 Carbon Dioxide 24 mmol/L (22-30) 08/09/17 08:12 Anion Gap 24 (10-20) H 08/09/17 08:12 BUN 23 mg/dl (9-20) H 08/09/17 08:12 Creatinine 0.9 mg/dl (0.8-1.5) 08/09/17 08:12 Est GFR ( Amer) > 60 08/09/17 08:12 Est GFR (Non-Af Amer) > 60 08/09/17 08:12 Random Glucose 105 mg/dL (75-110) 08/09/17 08:12 Lactic Acid 1.0 MMOL/L (0.7-2.1) 08/03/17 01:40 Calcium 10.2 mg/dL (8.4-10.2) 08/09/17 08:12 Total Bilirubin 0.4 mg/dl (0.2-1.3) 08/09/17 08:12 AST 32 U/L (17-59) 08/09/17 08:12 ALT 35 U/L (21-72) 08/09/17 08:12 Alkaline Phosphatase 80 U/L (38-126) 08/09/17 08:12 NT-Pro-B Natriuret Pep 1050 pg/ml (0-900) H 08/03/17 07:05 Total Protein 9.6 G/DL (6.3-8.2) H 08/09/17 08:12 Albumin 4.4 g/dL (3.5-5.0) 08/09/17 08:12 Globulin 5.2 gm/dL (2.2-3.9) H 08/09/17 08:12 Albumin/Globulin Ratio 0.8 (1.0-2.1) L 08/09/17 08:12 Vancomycin Trough 13.4 ug/mL (5.0-10.0) H 08/04/17 14:35 - Hospital Course Hospital Course: 67 y.o. male PMhx/o b/l leg stasis edema lower extremities, chronic leg ulcers, RLE DVT, CHF (not currently under treatment) with Rt. lower leg DVT at popliteal vein. S/p lovenox and started on Coumadin. INR at 08/09/2017 is 1.7. Pt also presented with bl Lower extremity venous stasis dermatitis. Pt was offered IVC filter but declined. Pt also presented with scabies s/p treatment with permetrin lotion. Pt d/c with coumadin 5 mg po qd and scripts for f/u INR on 07/12 and 07/16 along with betamethasone and clotrimazole. Pt to follow up in clinic at [address] [place] [address] and wound care. Discharge Exam - Head Exam Head Exam: ATRAUMATIC, NORMAL INSPECTION, NORMOCEPHALIC - Eye Exam Eye Exam: EOMI - Neck Exam Neck exam: Full Rom - Respiratory Exam Respiratory Exam: Clear to PA & Lateral, NORMAL BREATHING PATTERN - Cardiovascular Exam Cardiovascular Exam: +S1, +S2 - GI/Abdominal Exam GI & Abdominal Exam: Normal Bowel Sounds, Soft. absent: Tenderness - Neurological Exam Neurological exam: Alert, CN II-XII Intact, Normal Gait, Oriented x3 - Psychiatric Exam Psychiatric exam: Normal Affect, Normal Mood
== END 2017-08-09 14:30 | disposition home or self-care (01) | DRG 300 ==
LOC: H.ER 00:37 → H.ERHOLD 02:39 → H.ICU/CCU 06:34 → H.TEL 08-04 00:45 → H.MEDSURG1 08-06 16:34
PROVIDERS: ADMIT Family Medicine Geriatric Medicine; ATTEND Family Medicine Geriatric Medicine
DX: I82.431 Acute embolism and thrombosis of right popliteal vein (principal); L03.116 Cellulitis of left lower limb; L03.115 Cellulitis of right lower limb; L97.919 Non-pressure chronic ulcer of unspecified part of right lower leg with unspecified severity; Z59.0 Homelessness; I87.2 Venous insufficiency (chronic) (peripheral); B86 Scabies; F17.210 Nicotine dependence, cigarettes, uncomplicated; Z91.14 Patient's other noncompliance with medication regimen; Z53.20 Procedure and treatment not carried out because of patient's decision for unspecified reasons; Z86.718 Personal history of other venous thrombosis and embolism